=== PATIENT | female | born 1960 | race Caucasian/White ===

== ENCOUNTER 2018-07-10 13:47 | Inpatient (IN) | payer BC ==
[2018-07-10 14:14] LABS: #Eosinphils 0.1 thou/uL (0.0-0.7); #Lymphocytes 1.1 thou/uL (1.20-3.40); #Monocytes 0.7 thou/uL (0.11-0.59); #Neutrophils 12.4 thou/uL (1.40-6.50); %Basophils 0.1 % (0.0-1.0); %Eosinophils 0.6 % (0.0-10.0); %Lymphocytes 7.8 % (21.0-51.0); %Monocytes 5.1 % (0.0-10.0); %Neutrophils 86.4 % (42.0-75.0); Hemoglobin 15.2 g/dL (12.0-16.0); Mean Corpuscular HGB CONC 32.8 g/dL (32.0-36.0); Mean Corpuscular Hemoglobin 33.8 pg (27.0-31.0); Mean Platelet Volume 7.1 fL (7.4-10.4); Platelet Count 226 thou/uL (130-400); RBC Distribution Width 12.7 % (11.5-14.5); White Blood Cell (WBC) Count 14.3 thou/uL (4.8-10.8)
--- NOTE | 2018-07-10 14:24 | RAD ---
CHEST 1 VIEW: Date: 07/10/18 HISTORY: Dyspnea. COMPARISON: Radiograph dated 08/25/16. FINDINGS: Abnormal nodular densities are present in the right lung base. This is likely the costochondral calci fication as can be seen on the prior examination. Calcified granuloma left lung base. No focal air sp perla consolidation. IMPRESSION: Chronic changes. No acute intrathoracic abnormality. POS: [facility]
[2018-07-10 14:50] LABS: ALT (SGPT) 38 U/L (8-55); AST (SGOT) 44 U/L (5-34); Albumin 4.1 g/dL (3.5-5.0); Alkaline Phosphatase 94 U/L (40-150); Anion Gap 22 mmol/L (10-20); BUN (Urea Nitrogen) 10 mg/dL (9.8-20.1); Bilirubin, Total 0.8 mg/dL (0.2-1.2); Calc. Creatinine Clearance 0 mL/min (70-130); Calcium 9.6 mg/dL (7.8-10.44); Carbon Dioxide 18 mmol/L (22-29); Chloride 90 mmol/L (98-107); Estimated GFR-MDRD 52; Globulin 3.1 g/dL (2.4-3.5); Glucose 129 mg/dL (70-105); Potassium 4.5 mmol/L (3.5-5.1); Protein, Total 7.2 g/dL (6.0-8.3); Sodium 125 mmol/L (136-145)
[2018-07-10 15:34] LABS: Acetaminophen Less than 6.0 mcg/mL (10.0-30.0); Alcohol Less than 10 mg/dL (Less than 10); Salicylate Less than 8.0 mg/dL (15.0-30.0)
[2018-07-10] MEDS ORDERED: Multivitamins, Adult 10 ML, Thiamine HCl 100 MG, Folic Acid 1 MG in Dextrose 5 %-0.45 %... IV SCH (16:30)
[2018-07-10] MEDS ORDERED: Lorazepam 2 MG/ML VIAL ONE (16:37)
[2018-07-10] MEDS ORDERED: chlordiazePOXIDE HCl 25 MG CAP ONE (16:37)
--- NOTE | 2018-07-10 16:59 | CT ---
CT BRAIN WITHOUT CONTRAST: 07/10/18 HISTORY: Altered mental status. FINDINGS: Comparison is made with exam of 01/21/13. No evidence of infarct, hemorrhage, midline shift, or abnormal extra-axial fluid collections are seen . The ventricular size is normal and the basilar cisterns patent. The bony calvarium is intact. The v isualized paranasal sinuses and mastoid air cells are well aerated. IMPRESSION: No CT evidence of acute intracranial process. POS: [facility]
--- NOTE | 2018-07-10 17:11 | CT ---
CT CERVICAL SPINE NONCONTRAST: 07/10/18 HISTORY: Fall. Neck injury. FINDINGS: Vertebral body heights and alignment are maintained. Multilevel disc space narrowing and osteophytosi s with central canal and foraminal stenoses. No acute fracture or dislocation. Calcification at the c arotid bifurcations. IMPRESSION: Cervical spondylosis. No acute osseous abnormalities are demonstrated. Atherosclerosis. POS: [facility]
--- NOTE | 2018-07-10 19:45 | HP ---
DATE OF ADMISSION: 07/10/2018 CHIEF COMPLAINT: Altered mental status. HISTORY OF PRESENT ILLNESS: Patient is a 58-year-old female with long history of drinking 20 beers a day and when she is not drinking, she will use benzodiazepines and there is questionable use of them together and her history, she is brought in for not being able to recognize her brother and kario n and possibly start the day before when her son relates that he talked to her on the phone, she soun ded confused at that time as well. There is suspicion that she is getting ready to take a serum urin e drug screen for alcohol level since she is on probation and thought is that she has been excessivel y hydrating to flush this out of her system. Her alcohol level at this point is less than 10, but un fortunately her sodium level was down to 125 and she may be altered due to the low sodium and/or liss y signs of DTs and alcohol withdrawal. She does not use other illicit drugs. She does smoke. The ally leger is very open to going to a rehab facility after this hospitalization. PAST MEDICAL HISTORY: Significant for severe generalized anxiety disorder, hypertension, dyslipidemi a, and the aforementioned alcohol abuse. She also has COPD and has recently been started on Symbicor t. PAST SURGICAL HISTORY: Significant for hysterectomy. PSYCHIATRIC HISTORY: The patient has no hospitalizations, but is known to be replete with anxiety. SOCIAL HISTORY: Smokes occasionally and has been hiding her alcoholism for quite some time. She sean es at home and takes care of her mother. MEDICATIONS ON ADMISSION: Lisinopril 20 mg daily, metoprolol 50 mg daily, atorvastatin 40 mg at bedt antonia, potassium supplement daily, vitamin 81 mg aspirin daily and alprazolam 1 mg t.i.d. p.r.n. ALLERGIES: She is allergic to HYDROCODONE. REVIEW OF SYSTEMS: Difficult to ascertain at this time because of her altered mental status. PHYSICAL EXAMINATION: VITAL SIGNS: On admission, blood pressure 130/84, pulse 97, respirations 20, temperature 98.0, pain scale rated at 8/10 on her chronic back pain and O2 sat at 98% on 2 liters. GENERAL: This is an older than stated that appears older than stated age female who is michael rt, responsive, but confused. She does not recognize the examiner who she knows well. HEENT: Normocephalic and atraumatic. Pupils equal, round, and reactive to light. Extraocular muscl es are intact. TMs, nares, pharynx are clear. NECK: Supple, trachea midline, no mass or adenopathy. CHEST: With diminished breath sounds throughout. HEART: Regular rate and rhythm. BREASTS: Deferred. ABDOMEN: Soft, nontender, without organomegaly. GENITOURINARY: Deferred. EXTREMITIES: Without clubbing, cyanosis, or edema. Mild muscular wasting is noted in all extremitie s. Normal range of motion present. SKIN: Without rashes or lesions other than sporadic ecchymotic bruising. NEUROLOGIC: Cranial nerves are intact. Sensory exam is grossly intact. Deep tendon reflexes 2+. B abinskis down. Mental status is altered. She is oriented x1. Appears euthymic and confused. LABORATORY AND X-RAY FINDINGS: The lab work thus far shows WBCs 14.3, hemoglobin 15.2, hematocrit 46 .3, platelets at 226, unremarkable diff. Alcohol level less than 10. Chemistry: Sodium 125, potass ium 4.5, chloride 90, CO2 18, BUN 10, creatinine 1.08, GFR 52, glucose 129, serum osmolality low at 2 63, calcium 9.6. Liver functions normal except for slightly elevated AST at 44. TSH 1.7, lipase 17. Ammonia 27. CT of the head unremarkable. ASSESSMENT: 1. Altered mental status probably due to #2. 2. Anemia. 3. Alcoholism with possible early delirium tremors. 4. Hypertension. 5. Chronic obstructive pulmonary disease. The plan is we are going to admit the patient and prevent DTs. We are going to fluid restrict her, give her thiamine, folate, multiple vitamins, serially ree valuate her and when she seems to be past the detox phase, I will arrange for long-term rehabilitatio n.
[2018-07-10] MEDS ORDERED: Lorazepam 2 MG/ML VIAL SLOW IVP PRN (21:14)
[2018-07-10] MEDS ORDERED: Dextrose 5 % And 0.9 % NaCl 1,000 ML IV SCH (21:15)
[2018-07-10] MEDS ORDERED: Acetaminophen 325 MG TAB PO PRN (21:24)
[2018-07-10] MEDS ORDERED: Ondansetron HCl/PF 4 MG/2 ML Vial SLOW IVP PRN (21:25)
[2018-07-10] MEDS ORDERED: Budesonide 0.5 MG/2 ML NEB NEB SCH (21:30)
[2018-07-10] MEDS ORDERED: Sodium Chloride 0.9% 500 ML IV SCH (21:30)
[2018-07-10] MEDS: Metoprolol Tartrate 25 MG TAB PO SCH (21:47)
[2018-07-10] MEDS: chlordiazePOXIDE HCl 25 MG CAP PO SCH (21:47)
[2018-07-10 22:25] VITALS: BMI 18.7
[2018-07-11] MEDS: Lorazepam 2 MG/ML VIAL SLOW IVP PRN ×4 (00:21→20:00)
[2018-07-11 04:42] LABS: #Eosinphils 0.1 thou/uL (0.0-0.7); #Lymphocytes 1.3 thou/uL (1.20-3.40); #Monocytes 0.6 thou/uL (0.11-0.59); #Neutrophils 7.2 thou/uL (1.40-6.50); %Basophils 0.5 % (0.0-1.0); %Eosinophils 1.1 % (0.0-10.0); %Lymphocytes 14.4 % (21.0-51.0); %Monocytes 6.4 % (0.0-10.0); %Neutrophils 77.7 % (42.0-75.0); Hemoglobin 13.3 g/dL (12.0-16.0); Mean Corpuscular HGB CONC 35.6 g/dL (32.0-36.0); Mean Corpuscular Hemoglobin 35.6 pg (27.0-31.0); Mean Platelet Volume 6.8 fL (7.4-10.4); Platelet Count 202 thou/uL (130-400); RBC Distribution Width 12.4 % (11.5-14.5); Red Blood Cell (RBC) Count 3.75 mill/uL (4.20-5.40); White Blood Cell (WBC) Count 9.2 thou/uL (4.8-10.8)
[2018-07-11 05:09] LABS: Anion Gap 12 mmol/L (10-20); BUN (Urea Nitrogen) 8 mg/dL (9.8-20.1); Calc. Creatinine Clearance 66 mL/min (70-130); Carbon Dioxide 25 mmol/L (22-29); Cardiac Risk 2.4 (Less than 4.5); Chloride 89 mmol/L (98-107); Cholesterol 181 mg/dl (< 200 Desired); Estimated GFR-MDRD 78; Glucose 92 mg/dL (70-105); HDL Cholesterol 75 mg/dL (>60 Neg Risk); LDL Cholesterol, Calculated 97 mg/dL; Magnesium 1.9 mg/dL (1.6-2.6); Potassium 3.2 mmol/L (3.5-5.1); Sodium 123 mmol/L (136-145); Triglycerides 45 mg/dL (Less than 150)
[2018-07-11] MEDS: Budesonide 0.5 MG/2 ML NEB INH SCH ×2 (06:35→19:40)
[2018-07-11] MEDS: chlordiazePOXIDE HCl 25 MG CAP PO SCH ×4 (08:03→19:59)
[2018-07-11] MEDS: Folic Acid 1 MG TAB PO SCH (08:04)
[2018-07-11] MEDS: Multivit, Therapeutic 1 TAB PO SCH (08:04)
[2018-07-11] MEDS: Thiamine HCl 200 MG/2 ML VIAL IM SCH (08:05)
[2018-07-11] MEDS: Metoprolol Tartrate 25 MG TAB PO SCH ×2 (08:05→19:59)
[2018-07-11 10:03] LABS: Bilirubin Negative (Negative); Blood, Urine Negative (Negative); Clarity CLEAR (Clear); Glucose, Urine (Dipstick) Negative (Negative); Leukocyte Moderate (Negative); Nitrite Negative (Negative); Protein, Urine (Dipstick) Negative (Neg-Trace); Specific Gravity, Urine 1.005 (1.002-1.036); Urobilinogen 0.2 mg/dL (0.2-1.0)
[2018-07-11 10:05] LABS: Bacteria/HPF None Seen HPF (None Seen); Hyaline Casts/LPF 0-3 HYALINE CAST LPF (0-3 Hyaline); RBC/HPF None Seen HPF (0-3); Squamous Epithelial 0-3 HPF (0-3)
[2018-07-11 10:15] LABS: Amphetamine Not Detected (NotDetected); Barbiturates Screen Not Detected (NotDetected); Benzodiazepine Screen Detected (NotDetected); Cocaine Metabolite Screen Not Detected (NotDetected); Medtox Control Line Valid? VALID (VALID); Medtox Reader # READER 4; Methadone Not Detected (NotDetected); Methamphetamine Not Detected (NotDetected); Opiate Screen Not Detected (NotDetected); Oxycodone Screen Not Detected (NotDetected); Phencyclidine (PCP) Not Detected (NotDetected); THC/Cannabinoid Screen Not Detected (NotDetected); Tricyclic Screen Not Detected (NotDetected)
[2018-07-11] MEDS: Furosemide 20 MG/2 ML VIAL SLOW IVP SCH ×2 (13:04→17:14)
[2018-07-11] MEDS: NS 0.9% w/ 20 MEQ KCL 1,000 ML IV SCH (13:04)
[2018-07-11] MEDS: cefTRIAXone\\ROCEPHIN 1 GM in Sodium Chloride 0.9% 100 ML SLOW IVP SCH (14:10)
[2018-07-12] MEDS: Lorazepam 2 MG/ML VIAL SLOW IVP PRN (01:06)
[2018-07-12 05:22] LABS: Anion Gap 14 mmol/L (10-20); BUN (Urea Nitrogen) 8 mg/dL (9.8-20.1); Calc. Creatinine Clearance 68 mL/min (70-130); Calcium 8.4 mg/dL (7.8-10.44); Carbon Dioxide 24 mmol/L (22-29); Chloride 98 mmol/L (98-107); Estimated GFR-MDRD 81; Glucose 95 mg/dL (70-105); Potassium 3.5 mmol/L (3.5-5.1); Sodium 132 mmol/L (136-145)
[2018-07-12] MEDS: NS 0.9% w/ 20 MEQ KCL 1,000 ML IV SCH ×2 (06:00→14:58)
[2018-07-12] MEDS: Thiamine HCl 200 MG/2 ML VIAL IM SCH (07:41)
[2018-07-12] MEDS: chlordiazePOXIDE HCl 25 MG CAP PO SCH ×3 (07:41→16:32)
[2018-07-12] MEDS: Folic Acid 1 MG TAB PO SCH (07:42)
[2018-07-12] MEDS: Multivit, Therapeutic 1 TAB PO SCH (07:42)
[2018-07-12] MEDS: Metoprolol Tartrate 25 MG TAB PO SCH (07:42)
[2018-07-12 08:55] VITALS: BP 114/73
[2018-07-12] MEDS: Budesonide 0.5 MG/2 ML NEB INH SCH ×2 (09:01→18:41)
[2018-07-12 09:56] VITALS: TEMP 98.2
[2018-07-12] MEDS: cefTRIAXone\\ROCEPHIN 1 GM in Sodium Chloride 0.9% 100 ML SLOW IVP SCH (13:45)
--- NOTE | 2018-07-13 00:33 | DIS ---
DATE OF ADMISSION: 07/10/2018 DATE OF DISCHARGE: 07/12/2018 CHIEF COMPLAINT ON ADMISSION: Altered mental status. History and physical have been dictated. I will resume from there with hospital course. HOSPITAL COURSE: The patient was placed in a medical bed where regular dosing of Librium was perform ed. She was given daily doses of thiamine and folate. During this time, fluid was restricted to kun vate her sodium level over the next 24 hours, she failed to improve her sodium level actually went do wn to 123, potassium also began to diminish to 3.2. Remainder of her lab was normal. Her vital sign s are stable except for systolic of 91/57. UA did return positive for leukocytes esterase and with 4 -6 wbc's. 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 La six 20 mg IV was given twice, her IV fluids were changed to add potassium and the fluid rate of clarisa l saline was increased. Over the next 24 hours, she significantly improved, becoming fully oriented. There was no anxiety or tremors. Her medication had worked quite well. Sodium elevated to 132, po tassium was normalized to 3.5. The remainder of her electrolytes were normal. Her neurological stat us also improved to baseline where she was called, fully oriented and ready for discharge. [facility], [facility]hab was arranged with more than rehab and they will send someone to come and speak to her prior to discharge and arrange for outpatient rehabilitation. She will be maintained on Bact rim-DS twice a day, naltrexone 50 mg daily, and gabapentin 400 mg b.i.d. to replace Librium. DISCHARGE DIAGNOSES: 1. Alcohol withdrawal. 2. Urinary tract infection. 3. 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 4. Altered mental status, resolved. 5. Hypertension, resolved. DISCHARGE MEDICATIONS: As previously mentioned will be Bactrim-DS b.i.d. #14, naltrexone 50 daily #3 0, folate 1 mg daily #30 and gabapentin 400 mg b.i.d. #20. PLAN: She is to follow up with Dr. Butts in 1 week, the time required to examine the chart, then exa mined the patient. Prepare for discharge including arranging outpatient rehab and dictation as well as reconciling all her medication came to 40 minutes and she is discharged in stable condition and wi ll be released from the hospital once [facility] has had a chance to arrange outpatient care.
== END 2018-07-12 18:50 | disposition home or self-care (01) | DRG 897 ==
LOC: ERS 13:47 → T4-B 21:15
PROVIDERS: ADMIT Specialist; ATTEND Specialist
DX: F10.231 Alcohol dependence with withdrawal delirium (principal); N39.0 Urinary tract infection, site not specified; E22.2 Syndrome of inappropriate secretion of antidiuretic hormone; D64.9 Anemia, unspecified; R41.82 Altered mental status, unspecified; F41.9 Anxiety disorder, unspecified; J44.9 Chronic obstructive pulmonary disease, unspecified; I10 Essential (primary) hypertension
CPT/HCPCS: 36415; 70450; 71045; 72125; 80048; 80053; 80061; 80306; 80307; 81001; 82140; 83690; 83735; 83930; 83935; 84443; 85025; 93005; 94640; 94760; 96365; A4216; J0696; J1940; J2060; J3411; J3475; J7042; J7050; J7626

== ENCOUNTER 2018-11-14 06:14 | Emergency (ER) | payer BC ==
[2018-11-14 07:14] LABS: #Eosinphils 0.1 thou/uL (0.0-0.7); #Lymphocytes 1.3 thou/uL (1.20-3.40); #Monocytes 0.6 thou/uL (0.11-0.59); #Neutrophils 13.6 thou/uL (1.40-6.50); %Basophils 0.2 % (0.0-1.0); %Eosinophils 0.4 % (0.0-10.0); %Lymphocytes 8.2 % (21.0-51.0); %Neutrophils 87.2 % (42.0-75.0); Hemoglobin 13.9 g/dL (12.0-16.0); Mean Corpuscular HGB CONC 32.1 g/dL (32.0-36.0); Mean Corpuscular Hemoglobin 31.6 pg (27.0-31.0); Mean Corpuscular Volume 98.4 fL (78.0-98.0); Mean Platelet Volume 7.1 fL (7.4-10.4); Platelet Count 306 thou/uL (130-400); RBC Distribution Width 11.9 % (11.5-14.5); Red Blood Cell (RBC) Count 4.42 mill/uL (4.20-5.40); White Blood Cell (WBC) Count 15.6 thou/uL (4.8-10.8)
[2018-11-14 07:37] LABS: ALT (SGPT) 19 U/L (8-55); AST (SGOT) 22 U/L (5-34); Albumin 4.4 g/dL (3.5-5.0); Alkaline Phosphatase 88 U/L (40-150); Anion Gap 14 mmol/L (10-20); BUN (Urea Nitrogen) 12 mg/dL (9.8-20.1); Bilirubin, Total 0.4 mg/dL (0.2-1.2); Calc. Creatinine Clearance 0 mL/min (70-130); Calcium 9.6 mg/dL (7.8-10.44); Carbon Dioxide 26 mmol/L (22-29); Chloride 96 mmol/L (98-107); Estimated GFR-MDRD 68; Globulin 3.2 g/dL (2.4-3.5); Glucose 96 mg/dL (70-105); Potassium 3.8 mmol/L (3.5-5.1); Protein, Total 7.6 g/dL (6.0-8.3); Sodium 132 mmol/L (136-145)
--- NOTE | 2018-11-14 09:35 | RAD ---
PORTABLE CHEST ONE VIEW: 11/14/2018 6:49 a.m. HISTORY: Cough. COMPARISON: 07/10/2018 FINDINGS: The heart size is normal. The lungs are well expanded without focal areas of consolidation, pneumoth orax, or pleural effusions. Calcified granuloma in the left lung base is again seen. IMPRESSION: No acute process. POS: [facility]
== END 2018-11-14 09:03 | disposition home or self-care (01) ==
LOC: ERS 06:14
DX: J44.1 Chronic obstructive pulmonary disease with (acute) exacerbation (principal); J20.9 Acute bronchitis, unspecified; J44.0 Chronic obstructive pulmonary disease with (acute) lower respiratory infection; Z71.6 Tobacco abuse counseling; E78.5 Hyperlipidemia, unspecified; I10 Essential (primary) hypertension; F41.9 Anxiety disorder, unspecified; F32.9 Major depressive disorder, single episode, unspecified; F17.210 Nicotine dependence, cigarettes, uncomplicated; Z79.899 Other long term (current) drug therapy
CPT/HCPCS: 36415; 71045; 80053; 83605; 84484; 85025; 87804; 93005; 94640; 99406; J7620

== ENCOUNTER 2021-06-12 13:56 | Inpatient (IN) | payer BC, SELFPAY ==
[~2021-06-12 13:56] MED LIST: Iopamidol-370 76% 500 ML 1 ML ONE
[2021-06-12 14:45] LABS: Actual Bicarbonate (HCO3a) 23.2 mEq/L (22-28); Base Excess (BEa) -2.3 mEq/L (-2.0 to +3.0); CO2 Tension 42.3 mmHg (35.0-45.0); O2 Tension (PaO2), arterial 85.9 mmHg (> 80.0); pH, Arterial 7.36 (7.35-7.45)
[2021-06-12 14:46] LABS: Analyzer IN Cardio ER; Calcium, Ionized (arterial) 1.12 mmol/L (1.12-1.30); Hemoglobin (Hb) 15.6 g/dL (12.0-16.0); Potassium - ABG Lab 4.05 mmol/L (3.70-5.30)
[2021-06-12] MEDS ORDERED: Magnesium 2 GM/50 ML BAG (IN WATER) ONE (14:53)
[2021-06-12] MEDS ORDERED: Ipratropium Bromide 2.5 ml Neb ONE (14:53)
[2021-06-12] MEDS ORDERED: Albuterol Sulfate 2.5 mg/3 ml Neb ONE (14:53)
[2021-06-12] MEDS ORDERED: Lorazepam 2 MG/ML VIAL ONE (14:53)
[2021-06-12 15:01] LABS: Puncture Site LRA
[2021-06-12 15:02] LABS: ALV-art Gradient 89.385 mmHg (0-20)
[2021-06-12 15:23] LABS: #Lymphocytes 0.5 thou/uL (1.20-3.40); #Monocytes 0.2 thou/uL (0.11-0.59); #Neutrophils 12.2 thou/uL (1.40-6.50); %Eosinophils 0.1 % (0.0-10.0); %Lymphocytes 4.1 % (21.0-51.0); %Monocytes 1.6 % (0.0-10.0); %Neutrophils 94.2 % (42.0-75.0); Hemoglobin 15.3 g/dL (12.0-16.0); Mean Corpuscular HGB CONC 33.4 g/dL (32.0-36.0); Mean Corpuscular Hemoglobin 33.8 pg (27.0-31.0); Mean Platelet Volume 7.2 fL (7.4-10.4); Platelet Count 331 thou/uL (130-400); RBC Distribution Width 12.3 % (11.5-14.5); Red Blood Cell (RBC) Count 4.51 mill/uL (4.20-5.40); White Blood Cell (WBC) Count 12.9 thou/uL (4.8-10.8)
[2021-06-12 15:43] LABS: ALT (SGPT) 19 U/L (8-55); AST (SGOT) 29 U/L (5-34); Albumin 4.5 g/dL (3.5-5.0); Alkaline Phosphatase 113 U/L (40-110); Anion Gap 14 mmol/L (10-20); BUN (Urea Nitrogen) 10 mg/dL (9.8-20.1); Bilirubin, Total 0.2 mg/dL (0.2-1.2); Calc. Creatinine Clearance 0 mL/min (70-130); Calcium 9.5 mg/dL (7.8-10.44); Carbon Dioxide 28 mmol/L (22-29); Chloride 89 mmol/L (98-107); Globulin 3.5 g/dL (2.4-3.5); Glucose 127 mg/dL (70-105); Sodium 127 mmol/L (136-145)
[2021-06-12 15:53] LABS: SARS-CoV-2 NAA Rapid Test Not Detected (NotDetected)
[2021-06-12] MEDS ORDERED: predniSONE 20 MG TAB PO SCH (21:00)
[2021-06-12 21:03] LABS: Troponin I Less than 0.010 ng/mL (< 0.028)
[2021-06-12] MEDS ORDERED: Enoxaparin Sodium 40 MG/0.4 ML SYRINGE SC SCH (21:15)
[2021-06-12] MEDS ORDERED: Azithromycin 500 MG in Sodium Chloride 0.9% 250 ML 250 ML IVPB SCH (22:00)
[2021-06-12] MEDS: Nicotine 21 MG PATCH TD SCH (23:53)
[2021-06-13] MEDS ORDERED: Metoprolol Tartrate 50 MG TAB PO SCH ×3 (00:29→21:00)
[2021-06-13] MEDS ORDERED: Lisinopril 20 MG TAB PO SCH ×2 (00:29→09:00)
[2021-06-13] MEDS ORDERED: Gabapentin 100 MG CAP PO SCH ×2 (00:29→09:00)
[2021-06-13 00:42] VITALS: BMI 18.8
[2021-06-13] MEDS: Thiamine HCl 200 MG/2 ML VIAL SLOW IVP SCH (00:58)
[2021-06-13] MEDS ORDERED: cefTRIAXone\\ROCEPHIN 1 GM in Sodium Chloride 0.9% 100 ML IVPB SCH (02:00)
[2021-06-13] MEDS ORDERED: Cefepime 1 GM VIAL ONE (02:39)
[2021-06-13] MEDS ORDERED: cefTRIAXone\\ROCEPHIN 1 GM VIAL ONE (02:40)
[2021-06-13 06:15] LABS: INR-International Normal Ratio 0.9; PTT 24.5 sec (22.9-36.1); Prothrombin Time 11.6 sec (12.0-14.7)
[2021-06-13 06:18] LABS: Troponin I Less than 0.010 ng/mL (< 0.028)
[2021-06-13 06:21] LABS: #Lymphocytes 0.6 thou/uL (1.20-3.40); #Monocytes 0.5 thou/uL (0.11-0.59); #Neutrophils 9.9 thou/uL (1.40-6.50); %Basophils 0.1 % (0.0-1.0); %Eosinophils 0.1 % (0.0-10.0); %Lymphocytes 5.8 % (21.0-51.0); %Monocytes 4.3 % (0.0-10.0); %Neutrophils 89.7 % (42.0-75.0); Anion Gap 14 mmol/L (10-20); BUN (Urea Nitrogen) 14 mg/dL (9.8-20.1); Calc. Creatinine Clearance 62 mL/min (70-130); Carbon Dioxide 26 mmol/L (22-29); Chloride 90 mmol/L (98-107); Glucose 105 mg/dL (70-105); Mean Corpuscular HGB CONC 33.6 g/dL (32.0-36.0); Mean Corpuscular Hemoglobin 34.1 pg (27.0-31.0); Mean Platelet Volume 7.7 fL (7.4-10.4); Platelet Count 306 thou/uL (130-400); Potassium 5.2 mmol/L (3.5-5.1); RBC Distribution Width 12.2 % (11.5-14.5); Red Blood Cell (RBC) Count 4.12 mill/uL (4.20-5.40); Sodium 125 mmol/L (136-145); White Blood Cell (WBC) Count 11.1 thou/uL (4.8-10.8)
[2021-06-13] MEDS: Mometasone 200 MCG/Formoterol 5 MCG 120 PUFF INHALER INH SCH ×2 (07:17→19:35)
[2021-06-13 07:49] LABS: Lactic Acid 0.9 mmol/L (0.5-2.2)
[2021-06-13] MEDS: Folic Acid 1 MG TAB PO SCH (08:36)
[2021-06-13] MEDS: predniSONE 20 MG TAB PO SCH ×2 (08:37→20:27)
[2021-06-13] MEDS: Enoxaparin Sodium 40 MG/0.4 ML SYRINGE SC SCH (08:37)
[2021-06-13] MEDS ORDERED: Thiamine 100 MG TAB PO SCH (09:00)
[2021-06-13] MEDS: guaiFENesin ER 600 MG TAB PO SCH (20:27)
[2021-06-13] MEDS: Gabapentin 100 MG CAP PO SCH (20:29)
[2021-06-13] MEDS ORDERED: Atorvastatin Calcium 20 MG TAB PO SCH (21:00)
[2021-06-13] MEDS: Lisinopril 20 MG TAB PO SCH (21:05)
[2021-06-13] MEDS: Nicotine 21 MG PATCH TD SCH (21:07)
[2021-06-14] MEDS: Thiamine HCl 200 MG/2 ML VIAL SLOW IVP SCH (01:06)
[2021-06-14] MEDS ORDERED: cefTRIAXone\\ROCEPHIN 1 GM in Sodium Chloride 0.9% 100 ML IVPB SCH (03:00)
[2021-06-14 06:46] LABS: #Lymphocytes 1.3 thou/uL (1.20-3.40); #Monocytes 0.8 thou/uL (0.11-0.59); %Basophils 0.1 % (0.0-1.0); %Eosinophils 0.2 % (0.0-10.0); %Lymphocytes 11.5 % (21.0-51.0); %Monocytes 6.9 % (0.0-10.0); %Neutrophils 81.3 % (42.0-75.0); Hemoglobin 14.1 g/dL (12.0-16.0); Mean Corpuscular HGB CONC 32.2 g/dL (32.0-36.0); Mean Corpuscular Hemoglobin 32.7 pg (27.0-31.0); Mean Platelet Volume 7.2 fL (7.4-10.4); Platelet Count 357 thou/uL (130-400); RBC Distribution Width 12.2 % (11.5-14.5); Red Blood Cell (RBC) Count 4.32 mill/uL (4.20-5.40); White Blood Cell (WBC) Count 11.1 thou/uL (4.8-10.8)
[2021-06-14] MEDS: Mometasone 200 MCG/Formoterol 5 MCG 120 PUFF INHALER INH SCH (06:55)
[2021-06-14 07:08] LABS: Anion Gap 12 mmol/L (10-20); BUN (Urea Nitrogen) 13 mg/dL (9.8-20.1); Calc. Creatinine Clearance 66 mL/min (70-130); Carbon Dioxide 31 mmol/L (22-29); Chloride 90 mmol/L (98-107); Glucose 102 mg/dL (70-105); Potassium 4.3 mmol/L (3.5-5.1); Sodium 129 mmol/L (136-145)
[2021-06-14] MEDS ORDERED: predniSONE 20 MG TAB PO SCH (08:00)
[2021-06-14] MEDS ORDERED: Azithromycin 250 MG TAB PO SCH (09:00)
[2021-06-14] MEDS: guaiFENesin ER 600 MG TAB PO SCH (09:19)
[2021-06-14] MEDS: Enoxaparin Sodium 40 MG/0.4 ML SYRINGE SC SCH (09:19)
[2021-06-14] MEDS: Gabapentin 100 MG CAP PO SCH (09:19)
[2021-06-14] MEDS: Folic Acid 1 MG TAB PO SCH (09:19)
[2021-06-14] MEDS: Lisinopril 20 MG TAB PO SCH (09:19)
[2021-06-14 16:23] VITALS: BP 124/85; TEMP 98.4
== END 2021-06-14 16:56 | disposition home or self-care (01) | DRG 189 ==
LOC: ERS 13:56 → 2NO 19:40 → T4-B 06-13 22:52
PROVIDERS: ADMIT Family Medicine; ATTEND Family Medicine
PROC: 5A09357 Assistance with Respiratory Ventilation, Less than 24 Consecutive Hours, Continuous Positive Airway Pressure (ICD-10-PCS; principal; 2021-06-12)
PROC: HZ2ZZZZ Detoxification Services for Substance Abuse Treatment (ICD-10-PCS; 2021-06-13)
DX: J96.01 Acute respiratory failure with hypoxia (principal); J44.1 Chronic obstructive pulmonary disease with (acute) exacerbation; E87.1 Hypo-osmolality and hyponatremia; E87.4 Mixed disorder of acid-base balance; M54.6 Pain in thoracic spine; I10 Essential (primary) hypertension; E78.5 Hyperlipidemia, unspecified; F10.10 Alcohol abuse, uncomplicated; Z20.822 Contact with and (suspected) exposure to COVID-19; F17.210 Nicotine dependence, cigarettes, uncomplicated; D72.829 Elevated white blood cell count, unspecified; Z90.710 Acquired absence of both cervix and uterus; Z88.8 Allergy status to other drugs, medicaments and biological substances; Z79.82 Long term (current) use of aspirin; Z79.51 Long term (current) use of inhaled steroids; Z79.899 Other long term (current) drug therapy; Z71.6 Tobacco abuse counseling
CPT/HCPCS: 0240U; 36415; 36600; 71045; 71275; 80048; 80053; 82805; 83605; 83690; 83880; 83930; 83935; 84145; 84300; 84484; 85025; 85379; 85610; 85730; 93005; 94640; 94644; 94660; 94760; 96365; 96375; 99292; J0456; J0696; J1650; J2060; J3411; J3475; J3490; J7050; J7512; J7611; J7620; Q9967

== ENCOUNTER 2021-12-02 02:16 | Emergency (ER) | payer BC, OTHER, SELFPAY ==
[2021-12-02] MEDS ORDERED: Sucralfate 1 GM/10 ML UDCUP ONE (02:43)
[2021-12-02 02:47] LABS: #Basophils 0.1 thou/uL (0.0-0.2); #Eosinphils 0.3 thou/uL (0.0-0.7); #Lymphocytes 2.2 thou/uL (1.20-3.40); #Monocytes 0.7 thou/uL (0.11-0.59); #Neutrophils 5.5 thou/uL (1.40-6.50); %Basophils 1.1 % (0.0-1.0); %Eosinophils 3.1 % (0.0-10.0); %Lymphocytes 25.2 % (21.0-51.0); %Monocytes 7.6 % (0.0-10.0); %Neutrophils 63.1 % (42.0-75.0); Hemoglobin 15.9 g/dL (12.0-16.0); Mean Corpuscular HGB CONC 36.1 g/dL (32.0-36.0); Mean Corpuscular Hemoglobin 36.3 pg (27.0-31.0); Platelet Count 213 thou/uL (130-400); RBC Distribution Width 11.7 % (11.5-14.5); Red Blood Cell (RBC) Count 4.36 mill/uL (4.20-5.40); White Blood Cell (WBC) Count 8.7 thou/uL (4.8-10.8)
[2021-12-02 03:11] LABS: ALT (SGPT) 22 U/L (8-55); AST (SGOT) 26 U/L (5-34); Albumin 4.1 g/dL (3.5-5.0); Alkaline Phosphatase 104 U/L (40-110); Anion Gap 15 mmol/L (10-20); BUN (Urea Nitrogen) 5 mg/dL (9.8-20.1); Bilirubin, Total 0.5 mg/dL (0.2-1.2); Calc. Creatinine Clearance 0 mL/min (70-130); Calcium 9.7 mg/dL (7.8-10.44); Carbon Dioxide 26 mmol/L (22-29); Chloride 85 mmol/L (98-107); Globulin 3.2 g/dL (2.4-3.5); Glucose 90 mg/dL (70-105); Lipase 17 U/L (8-78); Potassium 3.6 mmol/L (3.5-5.1); Protein, Total 7.3 g/dL (6.0-8.3); Sodium 122 mmol/L (136-145)
== END 2021-12-02 04:05 | disposition home or self-care (01) ==
LOC: ERS 02:16
DX: K29.70 Gastritis, unspecified, without bleeding (principal); E78.5 Hyperlipidemia, unspecified; E78.00 Pure hypercholesterolemia, unspecified; I10 Essential (primary) hypertension; J44.9 Chronic obstructive pulmonary disease, unspecified; F17.210 Nicotine dependence, cigarettes, uncomplicated
CPT/HCPCS: 36415; 71045; 80053; 83690; 84484; 85025; 93005

== ENCOUNTER 2021-12-20 07:23 | Observation (INO) | payer SELFPAY ==
[2021-12-20] MEDS ORDERED: Albuterol 200 PUFF (6.7GM INHALER) ONE (08:17)
[2021-12-20 08:19] LABS: #Eosinphils 0.2 thou/uL (0.0-0.7); #Lymphocytes 1.7 thou/uL (1.20-3.40); #Monocytes 0.4 thou/uL (0.11-0.59); #Neutrophils 3.3 thou/uL (1.40-6.50); %Basophils 0.7 % (0.0-1.0); %Eosinophils 3.3 % (0.0-10.0); %Lymphocytes 30.7 % (21.0-51.0); %Monocytes 6.6 % (0.0-10.0); %Neutrophils 58.8 % (42.0-75.0); Hemoglobin 15.1 g/dL (12.0-16.0); Mean Corpuscular HGB CONC 34.2 g/dL (32.0-36.0); Mean Corpuscular Hemoglobin 34.8 pg (27.0-31.0); Mean Platelet Volume 7.1 fL (7.4-10.4); Platelet Count 188 thou/uL (130-400); RBC Distribution Width 12.2 % (11.5-14.5); Red Blood Cell (RBC) Count 4.35 mill/uL (4.20-5.40); White Blood Cell (WBC) Count 5.7 thou/uL (4.8-10.8)
[2021-12-20 08:37] LABS: ALT (SGPT) 29 U/L (8-55); AST (SGOT) 35 U/L (5-34); Albumin 4.2 g/dL (3.5-5.0); Alkaline Phosphatase 118 U/L (40-110); Anion Gap 15 mmol/L (10-20); BUN (Urea Nitrogen) 5 mg/dL (9.8-20.1); Bilirubin, Total 0.5 mg/dL (0.2-1.2); Calc. Creatinine Clearance 0 mL/min (70-130); Calcium 9.6 mg/dL (7.8-10.44); Carbon Dioxide 29 mmol/L (22-29); Chloride 88 mmol/L (98-107); Globulin 3.3 g/dL (2.4-3.5); Glucose 96 mg/dL (70-105); Protein, Total 7.5 g/dL (6.0-8.3); Sodium 128 mmol/L (136-145)
[2021-12-20] MEDS ORDERED: Ondansetron PF 4 MG/2 ML Vial IVP PRN (09:46)
[2021-12-20] MEDS ORDERED: Senokot S 8.6-50 MG TAB PO PRN (09:46)
[2021-12-20] MEDS ORDERED: Guaifenesin DM 100-10/5 ML UDCUP PO PRN (09:46)
[2021-12-20] MEDS ORDERED: Calcium Carbonate 500 MG ChewTAB PO PRN (09:46)
[2021-12-20] MEDS ORDERED: Acetaminophen 325 MG TAB PO PRN (09:46)
[2021-12-20 13:17] LABS: SARS-CoV-2 NAA Rapid Test Not Detected (NotDetected)
[2021-12-20] MEDS: methylPREDNISolone Sod Succ 40 MG VIAL IVP SCH ×2 (14:19→21:55)
[2021-12-20] MEDS ORDERED: methylPREDNISolone Sod Succ 40 MG VIAL ONE (14:20)
[2021-12-20] MEDS: Carvedilol 6.25 MG TAB PO SCH (18:08)
[2021-12-20 18:31] VITALS: BMI 17.2
[2021-12-20] MEDS: Doxycycline 100 MG CAP PO SCH (21:57)
[2021-12-21] MEDS: methylPREDNISolone Sod Succ 40 MG VIAL IVP SCH (06:38)
[2021-12-21 07:30] LABS: #Lymphocytes 1.3 thou/uL (1.20-3.40); #Monocytes 0.3 thou/uL (0.11-0.59); #Neutrophils 5.7 thou/uL (1.40-6.50); %Basophils 0.1 % (0.0-1.0); %Eosinophils 0.1 % (0.0-10.0); %Lymphocytes 17.4 % (21.0-51.0); %Monocytes 4.3 % (0.0-10.0); %Neutrophils 78.1 % (42.0-75.0); Hemoglobin 14.3 g/dL (12.0-16.0); Mean Corpuscular HGB CONC 33.3 g/dL (32.0-36.0); Mean Corpuscular Hemoglobin 34.4 pg (27.0-31.0); Mean Platelet Volume 7.5 fL (7.4-10.4); Platelet Count 195 thou/uL (130-400); Red Blood Cell (RBC) Count 4.17 mill/uL (4.20-5.40); White Blood Cell (WBC) Count 7.3 thou/uL (4.8-10.8)
[2021-12-21 07:45] LABS: Anion Gap 14 mmol/L (10-20); BUN (Urea Nitrogen) 11 mg/dL (9.8-20.1); Calc. Creatinine Clearance 54 mL/min (70-130); Carbon Dioxide 30 mmol/L (22-29); Chloride 89 mmol/L (98-107); Glucose 150 mg/dL (70-105); Sodium 129 mmol/L (136-145)
[2021-12-21 08:20] VITALS: TEMP 96.7
[2021-12-21] MEDS: Carvedilol 6.25 MG TAB PO SCH (08:24)
[2021-12-21 08:25] VITALS: BP 131/80
[2021-12-21] MEDS: Doxycycline 100 MG CAP PO SCH (08:25)
[2021-12-21] MEDS ORDERED: Enoxaparin Sodium 40 MG/0.4 ML SYRINGE SC SCH (09:00)
[2021-12-21] MEDS ORDERED: Atorvastatin Calcium 20 MG TAB PO SCH (09:00)
[2021-12-21] MEDS ORDERED: Gabapentin 100 MG CAP PO SCH (09:00)
[2021-12-21] MEDS ORDERED: Aspirin Chewable 81 MG TAB PO SCH (09:00)
== END 2021-12-21 11:41 | disposition home or self-care (01) ==
LOC: ERS 07:23 → ERHOLD 08:47 → INTOOBSV 08:47 → T4-A 17:47
PROVIDERS: ADMIT Internal Medicine; ATTEND Internal Medicine
DX: J44.1 Chronic obstructive pulmonary disease with (acute) exacerbation (principal); J96.01 Acute respiratory failure with hypoxia; I10 Essential (primary) hypertension; E78.5 Hyperlipidemia, unspecified; Z87.891 Personal history of nicotine dependence; Z79.82 Long term (current) use of aspirin; Z79.899 Other long term (current) drug therapy; Z88.5 Allergy status to narcotic agent; Z88.8 Allergy status to other drugs, medicaments and biological substances; Z20.822 Contact with and (suspected) exposure to COVID-19
CPT/HCPCS: 36415; 71045; 80048; 80053; 84484; 85025; 93005; 94640; 96372; 96374; 96376; G0378; J1650; J2920; J7620; U0002

== ENCOUNTER 2022-03-23 11:43 | Observation (INO) | payer SELFPAY ==
[2022-03-23 12:25] LABS: #Basophils 0.1 thou/uL (0.0-0.2); #Eosinphils 0.6 thou/uL (0.0-0.7); #Lymphocytes 2.4 thou/uL (1.20-3.40); #Monocytes 0.4 thou/uL (0.11-0.59); #Neutrophils 2.7 thou/uL (1.40-6.50); %Basophils 1.1 % (0.0-1.0); %Eosinophils 9.4 % (0.0-10.0); %Lymphocytes 38.8 % (21.0-51.0); %Monocytes 6.7 % (0.0-10.0); Hemoglobin 14.6 g/dL (12.0-16.0); Mean Corpuscular HGB CONC 32.8 g/dL (32.0-36.0); Mean Corpuscular Hemoglobin 33.6 pg (27.0-31.0); Mean Platelet Volume 7.3 fL (7.4-10.4); Platelet Count 253 thou/uL (130-400); RBC Distribution Width 12.5 % (11.5-14.5); Red Blood Cell (RBC) Count 4.35 mill/uL (4.20-5.40); White Blood Cell (WBC) Count 6.1 thou/uL (4.8-10.8)
[2022-03-23 12:45] LABS: ALT (SGPT) 18 U/L (8-55); AST (SGOT) 24 U/L (5-34); Albumin 4.3 g/dL (3.5-5.0); Alkaline Phosphatase 82 U/L (40-110); Anion Gap 13 mmol/L (10-20); BUN (Urea Nitrogen) 6 mg/dL (9.8-20.1); Bilirubin, Total 0.5 mg/dL (0.2-1.2); Calc. Creatinine Clearance 0 mL/min (70-130); Calcium 9.6 mg/dL (7.8-10.44); Carbon Dioxide 30 mmol/L (22-29); Chloride 96 mmol/L (98-107); Globulin 2.9 g/dL (2.4-3.5); Glucose 100 mg/dL (70-105); Potassium 4.7 mmol/L (3.5-5.1); Protein, Total 7.2 g/dL (6.0-8.3); Sodium 134 mmol/L (136-145)
[2022-03-23] MEDS ORDERED: Magnesium 2 GM/50 ML BAG (IN WATER) ONE (13:56)
[2022-03-23] MEDS ORDERED: Albuterol Sulfate 2.5 mg/3 ml Neb ONE (15:13)
[2022-03-23] MEDS ORDERED: Acetaminophen 325 MG TAB PO PRN (18:17)
[2022-03-23] MEDS ORDERED: predniSONE 20 MG TAB PO SCH (18:30)
[2022-03-23 20:14] VITALS: BMI 17.6
[2022-03-23] MEDS ORDERED: Carvedilol 25 MG TAB PO SCH (21:15)
[2022-03-23] MEDS ORDERED: Gabapentin 100 MG CAP PO SCH (21:15)
[2022-03-23] MEDS: guaiFENesin ER 600 MG TAB PO SCH (21:32)
[2022-03-24] LABS: SARS-CoV-2 PCR by NAA Not Detected (NotDetected)
[2022-03-24 07:30] VITALS: TEMP 97.5
[2022-03-24] MEDS ORDERED: predniSONE 20 MG TAB PO SCH (08:00)
[2022-03-24] MEDS: guaiFENesin ER 600 MG TAB PO SCH (08:07)
[2022-03-24 08:08] VITALS: BP 131/58
[2022-03-24] MEDS ORDERED: Aspirin 81 mg Enteric Coated Tablet PO SCH (09:00)
[2022-03-24] MEDS ORDERED: Fluticasone Propionate Nasal Spray 16 gm Bottle NASAL SCH (09:00)
[2022-03-24] MEDS ORDERED: Enoxaparin Sodium 30 MG/0.3 ML SYRINGE SC SCH (09:00)
[2022-03-24] MEDS ORDERED: Carvedilol 25 MG TAB PO SCH (09:00)
[2022-03-24] MEDS ORDERED: Atorvastatin Calcium 10 MG TAB PO SCH (21:00)
[2022-03-24] MEDS ORDERED: Gabapentin 100 MG CAP PO SCH (21:00)
== END 2022-03-24 11:34 | disposition home or self-care (01) ==
LOC: ERS 11:43 → 2SW 17:17
PROVIDERS: ADMIT Family Medicine; ATTEND Family Medicine
DX: J44.1 Chronic obstructive pulmonary disease with (acute) exacerbation (principal); J96.01 Acute respiratory failure with hypoxia; J30.9 Allergic rhinitis, unspecified; E87.1 Hypo-osmolality and hyponatremia; G89.29 Other chronic pain; M54.50 Low back pain, unspecified; I10 Essential (primary) hypertension; E78.5 Hyperlipidemia, unspecified; F10.11 Alcohol abuse, in remission; F13.11 Sedative, hypnotic or anxiolytic abuse, in remission; Z87.891 Personal history of nicotine dependence; Z79.82 Long term (current) use of aspirin; Z79.899 Other long term (current) drug therapy; Z88.5 Allergy status to narcotic agent; Z88.8 Allergy status to other drugs, medicaments and biological substances; Z20.822 Contact with and (suspected) exposure to COVID-19
CPT/HCPCS: 36415; 71045; 80053; 84145; 84484; 85025; 90471; 90732; 93005; 94640; 96365; 96372; G0009; G0378; J1650; J3475; J7512; J7611; J7620; U0003; U0005

== ENCOUNTER 2022-04-19 10:39 | Emergency (ER) | payer OTHER ==
[2022-04-19 11:15] LABS: #Basophils 0.1 thou/uL (0.0-0.2); #Eosinphils 0.3 thou/uL (0.0-0.7); #Lymphocytes 1.9 thou/uL (1.20-3.40); #Monocytes 0.4 thou/uL (0.11-0.59); #Neutrophils 6.1 thou/uL (1.40-6.50); %Basophils 0.6 % (0.0-1.0); %Eosinophils 3.5 % (0.0-10.0); %Lymphocytes 21.8 % (21.0-51.0); %Monocytes 4.9 % (0.0-10.0); %Neutrophils 69.2 % (42.0-75.0); Hemoglobin 14.6 g/dL (12.0-16.0); Mean Corpuscular HGB CONC 33.2 g/dL (32.0-36.0); Mean Corpuscular Hemoglobin 33.9 pg (27.0-31.0); Mean Platelet Volume 6.7 fL (7.4-10.4); Platelet Count 272 thou/uL (130-400); RBC Distribution Width 12.5 % (11.5-14.5); White Blood Cell (WBC) Count 8.8 thou/uL (4.8-10.8)
[2022-04-19 11:35] LABS: ALT (SGPT) 21 U/L (8-55); AST (SGOT) 26 U/L (5-34); Alkaline Phosphatase 78 U/L (40-110); Anion Gap 12 mmol/L (10-20); BUN (Urea Nitrogen) 8 mg/dL (9.8-20.1); Bilirubin, Total 0.4 mg/dL (0.2-1.2); Calc. Creatinine Clearance 0 mL/min (70-130); Carbon Dioxide 31 mmol/L (22-29); Chloride 96 mmol/L (98-107); Globulin 3.3 g/dL (2.4-3.5); Glucose 79 mg/dL (70-105); Potassium 4.6 mmol/L (3.5-5.1); Protein, Total 7.3 g/dL (6.0-8.3); Sodium 134 mmol/L (136-145)
== END 2022-04-19 13:45 | disposition home or self-care (01) ==
LOC: ERS 10:39
DX: J44.1 Chronic obstructive pulmonary disease with (acute) exacerbation (principal); E78.5 Hyperlipidemia, unspecified; E78.00 Pure hypercholesterolemia, unspecified; I10 Essential (primary) hypertension; J44.9 Chronic obstructive pulmonary disease, unspecified; Z79.899 Other long term (current) drug therapy; Z87.891 Personal history of nicotine dependence
CPT/HCPCS: 36415; 71045; 80053; 84484; 85025; 93005; J7620

== ENCOUNTER 2022-05-02 10:34 | Emergency (ER) | payer OTHER, SELFPAY ==
[2022-05-02] MEDS ORDERED: Magnesium 2 GM/50 ML BAG (IN WATER) ONE (10:49)
[2022-05-02 12:14] LABS: #Eosinphils 0.2 thou/uL (0.0-0.7); #Lymphocytes 1.8 thou/uL (1.20-3.40); #Monocytes 0.3 thou/uL (0.11-0.59); #Neutrophils 10.3 thou/uL (1.40-6.50); %Basophils 0.3 % (0.0-1.0); %Eosinophils 1.4 % (0.0-10.0); %Monocytes 2.2 % (0.0-10.0); %Neutrophils 82.1 % (42.0-75.0); Hemoglobin 14.5 g/dL (12.0-16.0); Mean Corpuscular HGB CONC 33.7 g/dL (32.0-36.0); Mean Corpuscular Hemoglobin 34.4 pg (27.0-31.0); Mean Platelet Volume 6.4 fL (7.4-10.4); Platelet Count 278 thou/uL (130-400); RBC Distribution Width 12.7 % (11.5-14.5); Red Blood Cell (RBC) Count 4.21 mill/uL (4.20-5.40); White Blood Cell (WBC) Count 12.5 thou/uL (4.8-10.8)
[2022-05-02 12:41] LABS: ALT (SGPT) 20 U/L (8-55); AST (SGOT) 20 U/L (5-34); Albumin 4.2 g/dL (3.5-5.0); Alkaline Phosphatase 81 U/L (40-110); Anion Gap 14 mmol/L (10-20); BUN (Urea Nitrogen) 9 mg/dL (9.8-20.1); Bilirubin, Total 0.6 mg/dL (0.2-1.2); Calc. Creatinine Clearance 0 mL/min (70-130); Calcium 9.1 mg/dL (7.8-10.44); Carbon Dioxide 28 mmol/L (22-29); Chloride 94 mmol/L (98-107); Globulin 3.1 g/dL (2.4-3.5); Glucose 91 mg/dL (70-105); Potassium 4.3 mmol/L (3.5-5.1); Protein, Total 7.3 g/dL (6.0-8.3); Sodium 132 mmol/L (136-145)
== END 2022-05-02 14:15 | disposition home or self-care (01) ==
LOC: ERS 10:34
DX: J44.1 Chronic obstructive pulmonary disease with (acute) exacerbation (principal); I10 Essential (primary) hypertension; E78.5 Hyperlipidemia, unspecified; E78.00 Pure hypercholesterolemia, unspecified; J44.9 Chronic obstructive pulmonary disease, unspecified; Z87.891 Personal history of nicotine dependence; Z79.899 Other long term (current) drug therapy
CPT/HCPCS: 36415; 71045; 80053; 83605; 84484; 85025; 93005; 94640; 96365; J3475

== ENCOUNTER 2022-05-21 00:53 | Inpatient (IN) | payer SELFPAY ==
[2022-05-21 01:15] LABS: Analyzer IN Cardio ER; Base Excess (BEa) -0.5 mEq/L (-2.0 to +3.0); Calcium, Ionized (arterial) 1.15 mmol/L (1.12-1.30); Carboxyhemoglobin (COHb) 2.1 gm% (0.0-3.0); Hemoglobin (Hb) 13.8 g/dL (12.0-16.0); O2 Tension (PaO2), arterial 306.8 mmHg (> 80.0); pH, Arterial 7.26 (7.35-7.45)
[2022-05-21] MEDS ORDERED: Lorazepam 2 MG/ML VIAL ONE (01:27)
[2022-05-21 01:45] LABS: #Basophils 0.1 thou/uL (0.0-0.2); #Eosinphils 0.4 thou/uL (0.0-0.7); #Lymphocytes 2.8 thou/uL (1.20-3.40); #Monocytes 0.5 thou/uL (0.11-0.59); #Neutrophils 4.8 thou/uL (1.40-6.50); %Basophils 0.6 % (0.0-1.0); %Eosinophils 4.5 % (0.0-10.0); %Lymphocytes 33.4 % (21.0-51.0); %Monocytes 5.5 % (0.0-10.0); %Neutrophils 55.9 % (42.0-75.0); Hemoglobin 13.8 g/dL (12.0-16.0); Mean Corpuscular HGB CONC 32.8 g/dL (32.0-36.0); Mean Corpuscular Hemoglobin 33.8 pg (27.0-31.0); Mean Platelet Volume 6.9 fL (7.4-10.4); Platelet Count 272 thou/uL (130-400); RBC Distribution Width 12.8 % (11.5-14.5); White Blood Cell (WBC) Count 8.5 thou/uL (4.8-10.8)
[2022-05-21 02:07] LABS: ALT (SGPT) 16 U/L (8-55); AST (SGOT) 20 U/L (5-34); Albumin 4.1 g/dL (3.4-4.8); Alkaline Phosphatase 75 U/L (40-110); Anion Gap 13 mmol/L (10-20); BUN (Urea Nitrogen) 10 mg/dL (9.8-20.1); Bilirubin, Total 0.3 mg/dL (0.2-1.2); Calc. Creatinine Clearance 0 mL/min (70-130); Calcium 8.9 mg/dL (7.8-10.44); Carbon Dioxide 30 mmol/L (23-31); Chloride 94 mmol/L (98-107); Glucose 96 mg/dL (80-115); Potassium 4.2 mmol/L (3.5-5.1); Protein, Total 7.1 g/dL (5.8-8.1); Sodium 133 mmol/L (136-145)
[2022-05-21 03:45] LABS: CO2 Tension 63.3 mmHg (35.0-45.0)
[2022-05-21 03:46] LABS: ALV-art Gradient -29.425 mmHg (0-20); Puncture Site LRA
[2022-05-21 04:06] LABS: SARS-CoV-2 NAA Rapid Test Not Detected (NotDetected)
[2022-05-21 05:08] LABS: Troponin I Less than 0.010 ng/mL (< 0.028)
[2022-05-21] MEDS ORDERED: hydrALAZINE 20 MG/ML VIAL SLOW IVP PRN (08:20)
[2022-05-21] MEDS ORDERED: Ibuprofen 200 MG TAB PO PRN (08:20)
[2022-05-21] MEDS ORDERED: Guaifenesin DM 100-10/5 ML UDCUP PO PRN (08:20)
[2022-05-21] MEDS ORDERED: Acetaminophen 500 MG TAB PO PRN (08:20)
[2022-05-21] MEDS ORDERED: Benzonatate 100 MG CAP PO PRN (08:20)
[2022-05-21] MEDS ORDERED: Ondansetron PF 4 MG/2 ML Vial IVP PRN (08:20)
[2022-05-21] MEDS ORDERED: Ondansetron ODT 4 MG TAB PO PRN (08:20)
[2022-05-21] MEDS ORDERED: Carvedilol 6.25 MG TAB PO SCH (09:00)
[2022-05-21] MEDS: guaiFENesin ER 600 MG TAB PO SCH ×2 (10:44→21:13)
[2022-05-21] MEDS: methylPREDNISolone Sod Succ 40 MG VIAL IVP SCH ×3 (10:45→23:47)
[2022-05-21] MEDS: Aspirin 81 mg Enteric Coated Tablet PO SCH (10:45)
[2022-05-21] MEDS: Famotidine 20 MG TAB PO SCH ×2 (10:45→21:12)
[2022-05-21] MEDS: Carvedilol 25 MG TAB PO SCH ×2 (10:45→21:13)
[2022-05-21] MEDS: Fluticasone Propionate Nasal Spray 16 gm Bottle NASAL SCH (10:46)
[2022-05-21] MEDS: Budesonide 0.5 MG/2 ML NEB NEB SCH (19:26)
[2022-05-21] MEDS: Mometasone/Formoterol 200/5 60 PUFF INH SCH (19:27)
[2022-05-21] MEDS: Gabapentin 100 MG CAP PO SCH (21:12)
[2022-05-21] MEDS: Cyclobenzaprine 10 MG TAB PO SCH (21:13)
[2022-05-21] MEDS: Atorvastatin Calcium 10 MG TAB PO SCH (21:13)
[2022-05-22 04:04] LABS: #Lymphocytes 1.1 thou/uL (1.20-3.40); #Monocytes 0.1 thou/uL (0.11-0.59); #Neutrophils 7.7 thou/uL (1.40-6.50); %Eosinophils 0.2 % (0.0-10.0); %Lymphocytes 12.4 % (21.0-51.0); %Monocytes 1.1 % (0.0-10.0); %Neutrophils 86.4 % (42.0-75.0); Hemoglobin 13.2 g/dL (12.0-16.0); Mean Corpuscular HGB CONC 33.1 g/dL (32.0-36.0); Mean Platelet Volume 7.9 fL (7.4-10.4); Platelet Count 242 thou/uL (130-400); RBC Distribution Width 12.7 % (11.5-14.5); White Blood Cell (WBC) Count 8.9 thou/uL (4.8-10.8)
[2022-05-22 04:22] LABS: Anion Gap 13 mmol/L (10-20); BUN (Urea Nitrogen) 12 mg/dL (9.8-20.1); Calc. Creatinine Clearance 58 mL/min (70-130); Calcium 9.3 mg/dL (7.8-10.44); Carbon Dioxide 32 mmol/L (23-31); Chloride 92 mmol/L (98-107); Estimated GFR 84; Glucose 168 mg/dL (80-115); Potassium 4.1 mmol/L (3.5-5.1); Sodium 133 mmol/L (136-145)
[2022-05-22] MEDS: methylPREDNISolone Sod Succ 40 MG VIAL IVP SCH ×3 (06:46→21:00)
[2022-05-22] MEDS: Mometasone/Formoterol 200/5 60 PUFF INH SCH ×2 (07:00→19:36)
[2022-05-22] MEDS: Budesonide 0.5 MG/2 ML NEB NEB SCH ×2 (07:00→19:36)
[2022-05-22] MEDS: Aspirin 81 mg Enteric Coated Tablet PO SCH (07:56)
[2022-05-22] MEDS: Carvedilol 25 MG TAB PO SCH ×2 (07:56→20:56)
[2022-05-22] MEDS: guaiFENesin ER 600 MG TAB PO SCH ×2 (07:56→20:55)
[2022-05-22] MEDS: Famotidine 20 MG TAB PO SCH ×2 (07:56→20:56)
[2022-05-22] MEDS: Fluticasone Propionate Nasal Spray 16 gm Bottle NASAL SCH (07:57)
[2022-05-22 14:16] VITALS: BMI 18.7
[2022-05-22] MEDS: Gabapentin 100 MG CAP PO SCH (20:55)
[2022-05-22] MEDS: Cyclobenzaprine 10 MG TAB PO SCH (20:56)
[2022-05-22] MEDS: Atorvastatin Calcium 10 MG TAB PO SCH (20:56)
[2022-05-23] MEDS ORDERED: Melatonin 3 MG TAB PO PRN (00:38)
[2022-05-23] MEDS: methylPREDNISolone Sod Succ 40 MG VIAL IVP SCH ×2 (06:18→13:46)
[2022-05-23] MEDS: Mometasone/Formoterol 200/5 60 PUFF INH SCH (07:20)
[2022-05-23] MEDS: Budesonide 0.5 MG/2 ML NEB NEB SCH (07:20)
[2022-05-23] MEDS: Aspirin 81 mg Enteric Coated Tablet PO SCH (08:33)
[2022-05-23] MEDS: Famotidine 20 MG TAB PO SCH (08:33)
[2022-05-23] MEDS: guaiFENesin ER 600 MG TAB PO SCH (08:34)
[2022-05-23] MEDS: Carvedilol 25 MG TAB PO SCH (08:34)
[2022-05-23] MEDS: Fluticasone Propionate Nasal Spray 16 gm Bottle NASAL SCH (10:31)
[2022-05-23 16:50] VITALS: BP 154/89; TEMP 98.1
== END 2022-05-23 17:24 | disposition home or self-care (01) | DRG 189 ==
LOC: ERS 00:53 → IMCU/EMU 03:00 → T4-B 05-22 12:30
PROVIDERS: ADMIT Internal Medicine; ATTEND Internal Medicine
PROC: 5A09357 Assistance with Respiratory Ventilation, Less than 24 Consecutive Hours, Continuous Positive Airway Pressure (ICD-10-PCS; principal; 2022-05-21)
DX: J96.01 Acute respiratory failure with hypoxia (principal); J44.1 Chronic obstructive pulmonary disease with (acute) exacerbation; E87.1 Hypo-osmolality and hyponatremia; Z20.822 Contact with and (suspected) exposure to COVID-19; I10 Essential (primary) hypertension; J96.02 Acute respiratory failure with hypercapnia; E78.5 Hyperlipidemia, unspecified; F41.9 Anxiety disorder, unspecified; F32.A Depression, unspecified; Z90.710 Acquired absence of both cervix and uterus; Z87.891 Personal history of nicotine dependence; Z79.899 Other long term (current) drug therapy; Z88.8 Allergy status to other drugs, medicaments and biological substances; Z82.5 Family history of asthma and other chronic lower respiratory diseases; Z56.0 Unemployment, unspecified; Z79.82 Long term (current) use of aspirin
CPT/HCPCS: 36415; 36416; 36600; 71045; 80048; 80053; 82805; 83880; 84484; 85025; 93005; 94640; 94660; 96374; J2060; J2920; J7620; J7626; U0002

== ENCOUNTER 2022-12-02 15:53 | Emergency (ER) | payer OTHER, SELFPAY ==
[2022-12-02 17:22] LABS: #Basophils 0.1 thou/uL (0.0-0.2); #Eosinphils 0.3 thou/uL (0.0-0.7); #Lymphocytes 2.2 thou/uL (1.20-3.40); #Monocytes 0.5 thou/uL (0.11-0.59); #Neutrophils 4.1 thou/uL (1.40-6.50); %Eosinophils 3.9 % (0.0-10.0); %Lymphocytes 30.9 % (21.0-51.0); %Monocytes 7.3 % (0.0-10.0); %Neutrophils 56.9 % (42.0-75.0); Hemoglobin 14.6 g/dL (12.0-16.0); Mean Corpuscular HGB CONC 33.5 g/dL (32.0-36.0); Mean Corpuscular Hemoglobin 33.5 pg (27.0-31.0); Mean Corpuscular Volume 99.8 fl (78.0-98.0); Mean Platelet Volume 7.2 fL (7.4-10.4); Platelet Count 246 10x3/uL (130-400); RBC Distribution Width 11.7 % (11.5-14.5); Red Blood Cell (RBC) Count 4.37 mill/uL (4.20-5.40); White Blood Cell (WBC) Count 7.3 10x3/uL (4.8-10.8)
[2022-12-02 17:46] LABS: ALT (SGPT) 23 U/L (8-55); AST (SGOT) 26 U/L (5-34); Albumin 4.5 g/dL (3.4-4.8); Alkaline Phosphatase 91 U/L (40-110); Anion Gap 12 mmol/L (10-20); BUN (Urea Nitrogen) 13 mg/dL (9.8-20.1); Bilirubin, Total 0.4 mg/dL (0.2-1.2); Calc. Creatinine Clearance 0 mL/min (70-130); Calcium 9.6 mg/dL (7.8-10.44); Carbon Dioxide 28 mmol/L (23-31); Chloride 89 mmol/L (98-107); Estimated GFR 74; Globulin 2.8 g/dL (2.4-3.5); Glucose 78 mg/dL (80-115); Potassium 4.5 mmol/L (3.5-5.1); Protein, Total 7.3 g/dL (5.8-8.1); Sodium 124 mmol/L (136-145)
[2022-12-02] MEDS ORDERED: Aspirin Chewable 81 MG TAB ONE (18:44)
[2022-12-02] MEDS ORDERED: methylPREDNISolone Sod Succ/PF 125 MG/2 ML VIAL ONE (18:44)
[2022-12-02] MEDS ORDERED: Ipratropium/Albuterol 3 ML NEB ONE (19:05)
[2022-12-02 20:41] LABS: Anion Gap 13 mmol/L (10-20); BUN (Urea Nitrogen) 13 mg/dL (9.8-20.1); Calc. Creatinine Clearance 0 mL/min (70-130); Calcium 9.4 mg/dL (7.8-10.44); Carbon Dioxide 27 mmol/L (23-31); Chloride 95 mmol/L (98-107); Estimated GFR 88; Glucose 71 mg/dL (80-115); Sodium 131 mmol/L (136-145)
== END 2022-12-02 22:45 | disposition home or self-care (01) ==
LOC: ERS 15:53
DX: J44.1 Chronic obstructive pulmonary disease with (acute) exacerbation (principal); E87.1 Hypo-osmolality and hyponatremia; E78.5 Hyperlipidemia, unspecified; I10 Essential (primary) hypertension; J44.9 Chronic obstructive pulmonary disease, unspecified; Z79.899 Other long term (current) drug therapy
CPT/HCPCS: 36415; 71045; 80053; 83880; 84484; 85025; 93005; 96374; J2930; J7620

== ENCOUNTER 2024-01-01 06:05 | Inpatient (IN) | payer OTHER ==
[2024-01-01] MEDS ORDERED: methylPREDNISolone Sod Succ/PF 125 MG/2 ML VIAL ONE (06:19)
[2024-01-01 07:06] LABS: Troponin I 0.044 ng/mL (< 0.028)
[2024-01-01] MEDS ORDERED: Magnesium 2 GM/50 ML BAG (IN WATER) ONE (07:09)
[2024-01-01 07:31] LABS: Albumin 4.5 g/dL (3.4-4.8)
[2024-01-01 07:33] LABS: Calcium 9.3 mg/dL (7.8-10.44); Chloride Less than 65 mmol/L (98-107); Potassium 3.7 mmol/L (3.5-5.1)
[2024-01-01 07:34] LABS: Globulin 3.1 g/dL (2.4-3.5); Protein, Total 7.6 g/dL (5.8-8.1)
[2024-01-01 07:35] LABS: Carbon Dioxide 30 mmol/L (23-31)
[2024-01-01 07:36] LABS: Bilirubin, Total 1.4 mg/dL (0.2-1.2)
[2024-01-01 07:37] LABS: Alkaline Phosphatase 91 U/L (40-110); Calc. Creatinine Clearance 0 mL/min (70-130); Estimated GFR 82
[2024-01-01 07:38] LABS: BUN (Urea Nitrogen) 13 mg/dL (9.8-20.1)
[2024-01-01 07:39] LABS: AST (SGOT) 67 U/L (5-34)
[2024-01-01 07:40] LABS: ALT (SGPT) 29 U/L (8-55)
[2024-01-01 07:45] LABS: Critical Call Chemistry NUR.NKL@0744; Glucose 45 mg/dL (80-115); Sodium 104 mmol/L (136-145)
[2024-01-01 08:00] LABS: #Monocytes 0.2 thou/uL (0.11-0.59); #Neutrophils 3.9 thou/uL (1.40-6.50); %Basophils 0.4 % (0.0-1.0); %Eosinophils 0.2 % (0.0-10.0); %Monocytes 4.4 % (0.0-10.0); %Neutrophils 78.4 % (42.0-75.0); Mean Corpuscular Volume 81.4 fl (78.0-98.0); Mean Platelet Volume 9.9 fL (7.4-10.4); Platelet Count 224 10x3/uL (130-400); Red Blood Cell (RBC) Count 4.58 mill/uL (4.20-5.40)
[2024-01-01 08:03] LABS: Hemoglobin 13.9 g/dL (12.0-16.0)
[2024-01-01 08:04] LABS: Mean Corpuscular HGB CONC 36.5 g/dL (32.0-36.0); Mean Corpuscular Hemoglobin 30.3 pg (27.0-31.0)
[2024-01-01] MEDS ORDERED: Aspirin Chewable 81 MG TAB ONE (08:18)
[2024-01-01] MEDS ORDERED: Ondansetron PF 4 MG/2 ML Vial ONE (08:24)
[2024-01-01 09:25] LABS: BUN (Urea Nitrogen) 13 mg/dL (9.8-20.1); Calc. Creatinine Clearance 0 mL/min (70-130); Calcium 9.3 mg/dL (7.8-10.44); Carbon Dioxide 26 mmol/L (23-31); Chloride Less than 65 mmol/L (98-107); Estimated GFR 81; Glucose 68 mg/dL (80-115); Potassium 3.7 mmol/L (3.5-5.1)
[2024-01-01] MEDS ORDERED: Albuterol 2.5 MG (3 mL) NEB ONE (09:39)
[2024-01-01] MEDS ORDERED: Albuterol 2.5 MG (0.5 mL) NEB ONE (09:39)
[2024-01-01] MEDS ORDERED: Ipratropium/Albuterol 3 ML NEB ONE (09:39)
[2024-01-01 09:47] LABS: Sodium 104 mmol/L (136-145)
[2024-01-01] MEDS ORDERED: Acetaminophen 650 MG Suppository PR PRN (10:37)
[2024-01-01] MEDS ORDERED: Acetaminophen 325 MG TAB PO PRN (10:37)
[2024-01-01] MEDS ORDERED: Dextrose 50% Abboject 50 ML SYRINGE SLOW IVP PRN (10:48)
[2024-01-01] MEDS ORDERED: Dextrose 5% in Water 1,000 ML IV PRN (10:48)
[2024-01-01] MEDS ORDERED: Glucagon 1 MG/ML KIT IM PRN (10:48)
[2024-01-01] MEDS: Sodium Chloride 256 MEQ in Sterile Water 936 ML IV SCH ×2 (11:15→17:44)
[2024-01-01] MEDS: Ipratropium/Albuterol 3 ML NEB NEB SCH (12:14)
[2024-01-01 12:31] LABS: Hemoglobin A1c 5.8 % (4.0-6.0)
[2024-01-01 12:43] LABS: BUN (Urea Nitrogen) 13 mg/dL (9.8-20.1); Calc. Creatinine Clearance 0 mL/min (70-130); Carbon Dioxide 28 mmol/L (23-31); Chloride Less than 65 mmol/L (98-107); Estimated GFR 83; Glucose 104 mg/dL (80-115); Potassium 3.8 mmol/L (3.5-5.1)
[2024-01-01 12:50] LABS: Critical Call Chemistry NUR.VB5 @1249; Sodium 104 mmol/L (136-145)
[2024-01-01] MEDS: Ipratropium/Albuterol 3 ML NEB NEB PRN (14:40)
[2024-01-01 17:19] LABS: BUN (Urea Nitrogen) 13 mg/dL (9.8-20.1); Calc. Creatinine Clearance 0 mL/min (70-130); Calcium 8.7 mg/dL (7.8-10.44); Carbon Dioxide 29 mmol/L (23-31); Chloride Less than 65 mmol/L (98-107); Estimated GFR 73; Glucose 143 mg/dL (80-115); Potassium 3.7 mmol/L (3.5-5.1)
[2024-01-01 18:03] LABS: Critical Call Chemistry NUR.VB5@1800; Sodium 105 mmol/L (136-145)
[2024-01-01 18:54] VITALS: BMI 18.1
[2024-01-01 21:37] LABS: Anion Gap 16 mmol/L (10-20); BUN (Urea Nitrogen) 14 mg/dL (9.8-20.1); Calc. Creatinine Clearance 50 mL/min (70-130); Calcium 8.5 mg/dL (7.8-10.44); Carbon Dioxide 28 mmol/L (23-31); Chloride 68 mmol/L (98-107); Estimated GFR 77; Glucose 146 mg/dL (80-115); Potassium 3.6 mmol/L (3.5-5.1)
[2024-01-01 21:43] LABS: Critical Call Chemistry NUR.KAN@2143; Sodium 108 mmol/L (136-145)
[2024-01-01] MEDS: Atorvastatin Calcium 20 MG TAB PO SCH (21:44)
[2024-01-02 02:41] LABS: Anion Gap 17 mmol/L (10-20); Calc. Creatinine Clearance 53 mL/min (70-130); Calcium 8.5 mg/dL (7.8-10.44); Carbon Dioxide 26 mmol/L (23-31); Chloride 72 mmol/L (98-107); Estimated GFR 83; Glucose 125 mg/dL (80-115); Potassium 3.6 mmol/L (3.5-5.1)
[2024-01-02 02:49] LABS: BUN (Urea Nitrogen) 14 mg/dL (9.8-20.1)
[2024-01-02 02:52] LABS: Sodium 111 mmol/L (136-145)
[2024-01-02 05:51] LABS: #Monocytes 0.6 thou/uL (0.11-0.59); #Neutrophils 5.1 thou/uL (1.40-6.50); %Eosinophils 0.2 % (0.0-10.0); %Lymphocytes 10.3 % (21.0-51.0); %Monocytes 9.8 % (0.0-10.0); %Neutrophils 79.5 % (42.0-75.0); Hematocrit 34.9 % (36.0-47.0); Hemoglobin 12.8 g/dL (12.0-16.0); Mean Corpuscular HGB CONC 36.7 g/dL (32.0-36.0); Mean Corpuscular Hemoglobin 30.8 pg (27.0-31.0); Mean Platelet Volume 9.7 fL (7.4-10.4); Platelet Count 216 10x3/uL (130-400); RBC Distribution Width 12.2 % (11.5-14.5); Red Blood Cell (RBC) Count 4.16 mill/uL (4.20-5.40); White Blood Cell (WBC) Count 6.4 10x3/uL (4.8-10.8)
[2024-01-02 05:57] LABS: Mean Corpuscular Volume 83.9 fl (78.0-98.0)
[2024-01-02 06:14] LABS: Anion Gap 15 mmol/L (10-20); BUN (Urea Nitrogen) 12 mg/dL (9.8-20.1); Calc. Creatinine Clearance 55 mL/min (70-130); Calcium 8.7 mg/dL (7.8-10.44); Carbon Dioxide 28 mmol/L (23-31); Chloride 75 mmol/L (98-107); Estimated GFR 87; Glucose 95 mg/dL (80-115)
[2024-01-02 06:20] LABS: Critical Call Chemistry NUR.KAN@0618; Sodium 114 mmol/L (136-145)
[2024-01-02] MEDS: Dextrose 5% in Water 1,000 ML IV SCH (06:47)
[2024-01-02 08:47] LABS: Anion Gap 16 mmol/L (10-20); BUN (Urea Nitrogen) 12 mg/dL (9.8-20.1); Calc. Creatinine Clearance 51 mL/min (70-130); Calcium 8.8 mg/dL (7.8-10.44); Carbon Dioxide 30 mmol/L (23-31); Chloride 72 mmol/L (98-107); Estimated GFR 80; Glucose 160 mg/dL (80-115); Potassium 3.4 mmol/L (3.5-5.1)
[2024-01-02 09:05] LABS: Sodium 115 mmol/L (136-145)
[2024-01-02] MEDS: Lorazepam 1 MG TAB PO SCH ×2 (11:51→20:32)
[2024-01-02] MEDS: Cyclobenzaprine 10 MG TAB PO SCH ×2 (11:51→20:19)
[2024-01-02] MEDS: Gabapentin 100 MG CAP PO SCH ×2 (11:51→20:30)
[2024-01-02] MEDS: predniSONE 20 MG TAB PO SCH (11:52)
[2024-01-02] MEDS: Potassium Chloride 20 MEQ TAB PO SCH (11:52)
[2024-01-02] MEDS: Enoxaparin 40 MG (0.4 mL) SYRINGE SC SCH (11:52)
[2024-01-02 13:14] LABS: Anion Gap 13 mmol/L (10-20); BUN (Urea Nitrogen) 13 mg/dL (9.8-20.1); Calc. Creatinine Clearance 53 mL/min (70-130); Calcium 8.7 mg/dL (7.8-10.44); Carbon Dioxide 31 mmol/L (23-31); Chloride 71 mmol/L (98-107); Estimated GFR 82; Glucose 116 mg/dL (80-115); Potassium 3.3 mmol/L (3.5-5.1)
[2024-01-02 13:26] LABS: Sodium 112 mmol/L (136-145)
[2024-01-02] MEDS: Sodium Chloride 1 GM TAB PO SCH (14:30)
[2024-01-02 17:33] LABS: Anion Gap 12 mmol/L (10-20); BUN (Urea Nitrogen) 14 mg/dL (9.8-20.1); Calc. Creatinine Clearance 51 mL/min (70-130); Calcium 8.5 mg/dL (7.8-10.44); Carbon Dioxide 33 mmol/L (23-31); Chloride 72 mmol/L (98-107); Estimated GFR 79; Glucose 129 mg/dL (80-115); Potassium 4.2 mmol/L (3.5-5.1)
[2024-01-02 17:50] LABS: Sodium 113 mmol/L (136-145)
[2024-01-02 20:14] LABS: Anion Gap 11 mmol/L (10-20); BUN (Urea Nitrogen) 18 mg/dL (9.8-20.1); Calc. Creatinine Clearance 39 mL/min (70-130); Calcium 8.5 mg/dL (7.8-10.44); Carbon Dioxide 33 mmol/L (23-31); Chloride 74 mmol/L (98-107); Estimated GFR 57; Glucose 179 mg/dL (80-115); Potassium 4.1 mmol/L (3.5-5.1)
[2024-01-02] MEDS: Midodrine HCl 5 MG TAB PO SCH (20:19)
[2024-01-02 20:22] LABS: Sodium 114 mmol/L (136-145)
[2024-01-02] MEDS: Mometasone 200 MCG/Formoterol 5 MCG 120 PUFF INHALER INH SCH (20:22)
[2024-01-03] MEDS: Sodium Chloride 0.9% 500 ML IVPB SCH (00:23)
[2024-01-03 01:01] LABS: Anion Gap 8 mmol/L (10-20); BUN (Urea Nitrogen) 19 mg/dL (9.8-20.1); Calc. Creatinine Clearance 39 mL/min (70-130); Calcium 8.7 mg/dL (7.8-10.44); Carbon Dioxide 33 mmol/L (23-31); Chloride 78 mmol/L (98-107); Estimated GFR 57; Glucose 153 mg/dL (80-115); Potassium 4.2 mmol/L (3.5-5.1)
[2024-01-03 01:04] LABS: Critical Call Chemistry NUR.BR6@0104; Sodium 115 mmol/L (136-145)
[2024-01-03] MEDS: Aspirin 81 mg Enteric Coated Tablet PO SCH (08:18)
[2024-01-03 11:09] LABS: Anion Gap 9 mmol/L (10-20); BUN (Urea Nitrogen) 17 mg/dL (9.8-20.1); Calc. Creatinine Clearance 52 mL/min (70-130); Calcium 8.7 mg/dL (7.8-10.44); Carbon Dioxide 36 mmol/L (23-31); Chloride 81 mmol/L (98-107); Estimated GFR 79; Glucose 143 mg/dL (80-115); Potassium 3.5 mmol/L (3.5-5.1); Sodium 122 mmol/L (136-145)
[2024-01-03] MEDS: Benzocaine/Menthol 1 LOZ LOZ PO PRN (13:04)
[2024-01-03] MEDS: Polyethylene Glycol 3350 17 GM Packet PO SCH (13:04)
[2024-01-03 18:27] LABS: Anion Gap 10 mmol/L (10-20); BUN (Urea Nitrogen) 19 mg/dL (9.8-20.1); Calc. Creatinine Clearance 40 mL/min (70-130); Calcium 8.6 mg/dL (7.8-10.44); Carbon Dioxide 36 mmol/L (23-31); Chloride 82 mmol/L (98-107); Estimated GFR 58; Glucose 140 mg/dL (80-115); Potassium 4.5 mmol/L (3.5-5.1); Sodium 123 mmol/L (136-145)
[2024-01-03] MEDS: Senokot S 8.6-50 MG TAB PO SCH (21:54)
[2024-01-04 05:40] LABS: Anion Gap 10 mmol/L (10-20); BUN (Urea Nitrogen) 18 mg/dL (9.8-20.1); Calc. Creatinine Clearance 54 mL/min (70-130); Calcium 9.2 mg/dL (7.8-10.44); Carbon Dioxide 35 mmol/L (23-31); Chloride 83 mmol/L (98-107); Estimated GFR 83; Glucose 89 mg/dL (80-115); Potassium 4.1 mmol/L (3.5-5.1); Sodium 124 mmol/L (136-145)
[2024-01-04] MEDS: Sodium Chloride 256 MEQ in Dextrose 5% in Water 936 ML IV SCH (09:44)
[2024-01-04] MEDS: Polyethylene Glycol 3350 17 GM Packet PO SCH (09:46)
[2024-01-04 14:52] LABS: Anion Gap 12 mmol/L (10-20); BUN (Urea Nitrogen) 17 mg/dL (9.8-20.1); Calc. Creatinine Clearance 47 mL/min (70-130); Calcium 8.7 mg/dL (7.8-10.44); Carbon Dioxide 31 mmol/L (23-31); Chloride 85 mmol/L (98-107); Estimated GFR 69; Glucose 241 mg/dL (80-115); Potassium 4.2 mmol/L (3.5-5.1); Sodium 124 mmol/L (136-145)
[2024-01-04 18:36] LABS: Anion Gap 11 mmol/L (10-20); BUN (Urea Nitrogen) 18 mg/dL (9.8-20.1); Calc. Creatinine Clearance 51 mL/min (70-130); Calcium 8.8 mg/dL (7.8-10.44); Carbon Dioxide 33 mmol/L (23-31); Chloride 87 mmol/L (98-107); Estimated GFR 77; Glucose 150 mg/dL (80-115); Potassium 4.6 mmol/L (3.5-5.1); Sodium 126 mmol/L (136-145)
[2024-01-04] MEDS: FLU VACC QS2023-24(6MOS UP)/PF 60 MCG/0.5 ML SYRINGE IM ONE (22:14)
[2024-01-04 23:08] LABS: Anion Gap 11 mmol/L (10-20); BUN (Urea Nitrogen) 21 mg/dL (9.8-20.1); Calc. Creatinine Clearance 54 mL/min (70-130); Calcium 8.8 mg/dL (7.8-10.44); Carbon Dioxide 31 mmol/L (23-31); Chloride 90 mmol/L (98-107); Estimated GFR 82; Glucose 171 mg/dL (80-115); Potassium 4.2 mmol/L (3.5-5.1); Sodium 128 mmol/L (136-145)
[2024-01-05] MEDS: guaiFENesin ER 600 MG TAB PO SCH (09:11)
[2024-01-05] MEDS: LevoFLOXacin 750 MG TAB PO SCH (09:12)
[2024-01-05 09:25] LABS: Chloride 91 mmol/L (98-107); Potassium 4.2 mmol/L (3.5-5.1); Sodium 128 mmol/L (136-145)
[2024-01-05 09:26] LABS: Calcium 8.9 mg/dL (7.8-10.44); Glucose 105 mg/dL (80-115)
[2024-01-05 09:28] LABS: Anion Gap 11 mmol/L (10-20); Carbon Dioxide 30 mmol/L (23-31)
[2024-01-05 09:30] LABS: BUN (Urea Nitrogen) 17 mg/dL (9.8-20.1); Calc. Creatinine Clearance 60 mL/min (70-130); Estimated GFR 93
[2024-01-05] MEDS: dilTIAZem CD 120 MG CAP PO SCH (16:21)
[2024-01-05 18:06] LABS: Anion Gap 10 mmol/L (10-20); BUN (Urea Nitrogen) 15 mg/dL (9.8-20.1); Calc. Creatinine Clearance 52 mL/min (70-130); Calcium 8.7 mg/dL (7.8-10.44); Carbon Dioxide 34 mmol/L (23-31); Chloride 92 mmol/L (98-107); Estimated GFR 77; Glucose 148 mg/dL (80-115); Potassium 4.6 mmol/L (3.5-5.1); Sodium 131 mmol/L (136-145)
[2024-01-06] MEDS: LevoFLOXacin 750 MG TAB PO SCH (05:29)
[2024-01-06 07:02] LABS: Anion Gap 10 mmol/L (10-20); BUN (Urea Nitrogen) 12 mg/dL (9.8-20.1); Calc. Creatinine Clearance 65 mL/min (70-130); Calcium 8.7 mg/dL (7.8-10.44); Carbon Dioxide 37 mmol/L (23-31); Chloride 91 mmol/L (98-107); Estimated GFR 98; Glucose 105 mg/dL (80-115); Potassium 4.3 mmol/L (3.5-5.1); Sodium 134 mmol/L (136-145)
[2024-01-06 08:11] VITALS: TEMP 98.4
[2024-01-06] MEDS ORDERED: dilTIAZem CD 120 MG CAP PO SCH (09:00)
[2024-01-06] MEDS: dilTIAZem CD 180 MG CAP PO SCH (09:12)
[2024-01-06 11:17] VITALS: BP 115/66
== END 2024-01-06 13:05 | disposition home or self-care (01) | DRG 640 ==
LOC: ERS 06:05 → SUATTDRO 06:05 → ERHOLD 10:17 → 2NO 18:30
PROVIDERS: ADMIT Family Medicine; ATTEND Family Medicine
DX: E87.1 Hypo-osmolality and hyponatremia (principal); J96.01 Acute respiratory failure with hypoxia; J44.1 Chronic obstructive pulmonary disease with (acute) exacerbation; E44.0 Moderate protein-calorie malnutrition; Z68.1 Body mass index [BMI] 19.9 or less, adult; J40 Bronchitis, not specified as acute or chronic; E78.5 Hyperlipidemia, unspecified; I10 Essential (primary) hypertension; F41.9 Anxiety disorder, unspecified; F32.A Depression, unspecified; E16.2 Hypoglycemia, unspecified; E87.6 Hypokalemia; G62.9 Polyneuropathy, unspecified; Z88.8 Allergy status to other drugs, medicaments and biological substances; Z90.710 Acquired absence of both cervix and uterus; Z83.3 Family history of diabetes mellitus; Z79.899 Other long term (current) drug therapy; Z79.82 Long term (current) use of aspirin; Z79.51 Long term (current) use of inhaled steroids
CPT/HCPCS: 36415; 36416; 71045; 80048; 80053; 82533; 83036; 83930; 84300; 84443; 84484; 84550; 85025; 93005; 94640; 96365; 96375; A4217; J1650; J2405; J2930; J3475; J7030; J7070; J7512; J7611; J7620

== ENCOUNTER 2024-11-09 12:00 | Inpatient (IN) | payer OTHER, SELFPAY ==
[2024-11-09] MEDS ORDERED: LORazepam 2 MG/ML SYR.(CARPUJECT) ONE (12:02)
[2024-11-09] MEDS ORDERED: Albuterol 2.5 MG (0.5 mL) NEB ONE (12:08)
[2024-11-09] MEDS ORDERED: Albuterol 2.5 MG (3 mL) NEB ONE (12:08)
[2024-11-09] MEDS ORDERED: Magnesium 2 GM/50 ML BAG (IN WATER) ONE (12:20)
[2024-11-09] MEDS ORDERED: cefTRIAXone (ROCEPHIN) 2 GM VIAL ONE (12:20)
[2024-11-09] MEDS ORDERED: Azithromycin 500 MG VIAL ONE (12:21)
[2024-11-09] MEDS ORDERED: Sodium Chloride 0.9% 100 ML ONE (12:21)
[2024-11-09 12:26] LABS: Analyzer IN Cardio ER; Base Excess 1.6 mEq/L (-2.0 to +3.0); Calcium, Ionized (venous) 1.11 mmol/L (1.16-1.32); Chloride (VBG) 86 mmol/L (98-106); Hematocrit-VBG 38 % (36.0-47.0); Hemoglobin (Hb) 12.9 g/dL (11.7-16.0); Potassium (VBG) 4.47 mmol/L (3.70-5.30); Sodium 126 mmol/L (133-146); pH (venous) 7.351 (7.32-7.43)
[2024-11-09 12:36] LABS: %Basophils 0.5 % (0.0-1.0); %Eosinophils 0.4 % (0.0-10.0); %Lymphocytes 7.6 % (21.0-51.0); %Neutrophils 85.2 % (42.0-75.0); Hematocrit 34.4 % (36.0-47.0); Hemoglobin 11.9 g/dL (12.0-16.0); Mean Corpuscular HGB CONC 34.6 g/dL (32.0-36.0); Mean Corpuscular Hemoglobin 30.9 pg (27.0-31.0); Mean Corpuscular Volume 89.4 fL (78.0-98.0); Mean Platelet Volume 9.4 fL (7.4-10.4); Platelet Count 235 10x3/uL (130-400); Red Blood Cell (RBC) Count 3.85 mill/uL (4.20-5.40)
[2024-11-09 12:51] LABS: PTT 28.4 sec (22.9-36.1); Prothrombin Time 12.7 sec (12.0-14.7)
[2024-11-09 12:52] LABS: ALT (SGPT) 18 U/L (8-55); AST (SGOT) 22 U/L (5-34); Albumin 3.9 g/dL (3.4-4.8); Alkaline Phosphatase 90 U/L (40-110); Anion Gap 16 mmol/L (10-20); BUN (Urea Nitrogen) 16 mg/dL (9.8-20.1); Bilirubin, Total 0.3 mg/dL (0.2-1.2); Calc. Creatinine Clearance 0 mL/min (70-130); Calcium 9.3 mg/dL (7.8-10.44); Carbon Dioxide 27 mmol/L (23-31); Chloride 85 mmol/L (98-107); Estimated GFR 64; Globulin 3.8 g/dL (2.4-3.5); Glucose 97 mg/dL (80-115); Magnesium 1.5 mg/dL (1.6-2.6); Potassium 4.4 mmol/L (3.5-5.1); Protein, Total 7.7 g/dL (5.8-8.1); Sodium 124 mmol/L (136-145)
[2024-11-09 12:55] LABS: Troponin I Less than 0.010 ng/mL (< 0.028)
[2024-11-09] MEDS ORDERED: Iopamidol-370 76% 500 ML MDV (1 ML CHARGE) ONE (13:52)
[2024-11-09] MEDS ORDERED: Ondansetron ODT 4 MG TAB PO PRN (16:27)
[2024-11-09] MEDS ORDERED: Ondansetron PF 4 MG/2 ML Vial IVP PRN (16:27)
[2024-11-09] MEDS ORDERED: Acetaminophen 650 MG Suppository PR PRN (16:27)
[2024-11-09 17:47] VITALS: BMI 18.3
[2024-11-09] MEDS: Ipratropium/Albuterol 3 ML NEB NEB SCH (19:21)
[2024-11-09] MEDS: methylPREDNISolone Sod Succ 40 MG VIAL IVP SCH (19:56)
[2024-11-09] MEDS ORDERED: Gabapentin 100 MG CAP PO SCH (21:00)
[2024-11-09] MEDS: Simvastatin 10 MG TAB PO SCH (21:06)
[2024-11-09] MEDS: Famotidine 20 MG TAB PO SCH (21:06)
[2024-11-09] MEDS: Lorazepam 1 MG TAB PO SCH (21:17)
[2024-11-09] MEDS: Sodium Chloride 1 GM TAB PO SCH (21:17)
[2024-11-09] MEDS: Gabapentin 300 MG CAP PO SCH (21:18)
[2024-11-09] MEDS: Sodium Chloride 0.9% 500 ML IV SCH (21:48)
[2024-11-09 22:46] LABS: Anion Gap 12 mmol/L (10-20); BUN (Urea Nitrogen) 18 mg/dL (9.8-20.1); Calc. Creatinine Clearance 44 mL/min (70-130); Calcium 8.1 mg/dL (7.8-10.44); Carbon Dioxide 23 mmol/L (23-31); Chloride 94 mmol/L (98-107); Estimated GFR 63; Glucose 229 mg/dL (80-115); Potassium 4.1 mmol/L (3.5-5.1); Sodium 125 mmol/L (136-145)
[2024-11-09 22:49] LABS: Actual Bicarbonate (HCO3a) 27.2 mEq/L (22-28); Base Excess (BEa) 0.7 mEq/L (-2.0 to +3.0); CO2 Tension 52.5 mmHg (35.0-45.0); Calcium, Ionized (arterial) 1.12 mmol/L (1.12-1.30); Carboxyhemoglobin (COHb) 0.3 gm% (0.0-3.0); Hematocrit-ABG 32 % (36.0-47.0); O2 Tension (PaO2), arterial 68.1 mmHg (> 80.0); Potassium - ABG Lab 4.29 mmol/L (3.70-5.30); pH, Arterial 7.332 (7.35-7.45)
[2024-11-09 22:51] LABS: ALV-art Gradient 122.955 mmHg (0-20)
[2024-11-10] MEDS: Albuterol 2.5 MG (3 mL) NEB NEB PRN (05:11)
[2024-11-10 05:35] LABS: #Basophils Less than 0.03 10x3/uL (0.0-0.2); #Eosinophils Less than 0.03 10x3/uL (0.0-0.7); %Basophils 0.1 % (0.0-1.0); %Lymphocytes 3.7 % (21.0-51.0); %Monocytes 0.7 % (0.0-10.0); %Neutrophils 94.7 % (42.0-75.0); Hematocrit 32.5 % (36.0-47.0); Mean Corpuscular HGB CONC 33.8 g/dL (32.0-36.0); Mean Corpuscular Hemoglobin 31.3 pg (27.0-31.0); Mean Corpuscular Volume 92.6 fL (78.0-98.0); Mean Platelet Volume 10.5 fL (7.4-10.4); Platelet Count 233 10x3/uL (130-400); RBC Distribution Width 12.1 % (11.5-14.5); Red Blood Cell (RBC) Count 3.51 mill/uL (4.20-5.40)
[2024-11-10 06:51] LABS: ALT (SGPT) 16 U/L (8-55); AST (SGOT) 20 U/L (5-34); Albumin 3.2 g/dL (3.4-4.8); Anion Gap 16 mmol/L (10-20); BUN (Urea Nitrogen) 17 mg/dL (9.8-20.1); Bilirubin, Total 0.1 mg/dL (0.2-1.2); Calc. Creatinine Clearance 53 mL/min (70-130); Calcium 8.6 mg/dL (7.8-10.44); Carbon Dioxide 23 mmol/L (23-31); Chloride 96 mmol/L (98-107); Estimated GFR 78; Globulin 3.4 g/dL (2.4-3.5); Glucose 145 mg/dL (80-115); Potassium 4.5 mmol/L (3.5-5.1); Protein, Total 6.6 g/dL (5.8-8.1); Sodium 130 mmol/L (136-145)
[2024-11-10 07:29] LABS: Alkaline Phosphatase 86 U/L (40-110)
[2024-11-10 08:18] LABS: Legionella Urinary Ag Negative (Negative); Strep pneumo Urine Ag NEGATIVE (NEGATIVE)
[2024-11-10] MEDS: Aspirin 81 mg Enteric Coated Tablet PO SCH (09:32)
[2024-11-10] MEDS: Enoxaparin 30 MG (0.3 mL) SYRINGE SC SCH (09:32)
[2024-11-10] MEDS: Acetaminophen 325 MG TAB PO PRN (09:35)
[2024-11-10] MEDS: guaiFENesin ER 600 MG TAB PO PRN (09:39)
[2024-11-10] MEDS: cefTRIAXone\\ROCEPHIN 1 GM in Sodium Chloride 0.9% 100 ML IVPB SCH (12:09)
[2024-11-10] MEDS: Azithromycin 500 MG in Sodium Chloride 0.9% 250 ML 250 ML IVPB SCH (13:05)
[2024-11-10] MEDS: Cyclobenzaprine 10 MG TAB PO PRN (15:59)
[2024-11-10] MEDS: Azithromycin 250 MG TAB PO SCH (17:46)
[2024-11-10] MEDS: Lactated Ringer's 1,000 ML IV SCH (17:50)
[2024-11-11 05:04] LABS: #Basophils Less than 0.03 10x3/uL (0.0-0.2); #Eosinophils Less than 0.03 10x3/uL (0.0-0.7); %Basophils 0.1 % (0.0-1.0); %Monocytes 6.2 % (0.0-10.0); %Neutrophils 87.1 % (42.0-75.0); Hematocrit 30.8 % (36.0-47.0); Hemoglobin 10.4 g/dL (12.0-16.0); Mean Corpuscular HGB CONC 33.8 g/dL (32.0-36.0); Mean Corpuscular Volume 91.9 fL (78.0-98.0); Mean Platelet Volume 9.9 fL (7.4-10.4); Platelet Count 262 10x3/uL (130-400); RBC Distribution Width 12.3 % (11.5-14.5); Red Blood Cell (RBC) Count 3.35 mill/uL (4.20-5.40)
[2024-11-11 05:24] LABS: Anion Gap 9 mmol/L (10-20); BUN (Urea Nitrogen) 13 mg/dL (9.8-20.1); Calc. Creatinine Clearance 67 mL/min (70-130); Calcium 8.9 mg/dL (7.8-10.44); Carbon Dioxide 31 mmol/L (23-31); Chloride 98 mmol/L (98-107); Estimated GFR 99; Glucose 105 mg/dL (80-115); Potassium 4.2 mmol/L (3.5-5.1); Sodium 134 mmol/L (136-145)
[2024-11-11] MEDS ORDERED: FLU (Fluarix Triv) TS24-25(6MOS UP)/PF 45 MCG/0.5 ML Syringe IM ONE (09:00)
[2024-11-11] MEDS: Enoxaparin 40 MG (0.4 mL) SYRINGE SC SCH (09:33)
[2024-11-11] MEDS: predniSONE 20 MG TAB PO SCH (09:33)
[2024-11-11] MEDS: Lorazepam 1 MG TAB PO SCH ×2 (12:32→19:56)
[2024-11-11] MEDS: Azithromycin 250 MG TAB PO SCH (12:32)
[2024-11-11] MEDS: dilTIAZem CD 120 MG CAP PO SCH (14:38)
[2024-11-11] MEDS: methylPREDNISolone Sod Succ 40 MG VIAL IVP SCH (17:47)
[2024-11-12 04:14] LABS: #Basophils Less than 0.03 10x3/uL (0.0-0.2); #Eosinophils Less than 0.03 10x3/uL (0.0-0.7); %Basophils 0.1 % (0.0-1.0); %Lymphocytes 4.1 % (21.0-51.0); %Monocytes 1.7 % (0.0-10.0); %Neutrophils 93.7 % (42.0-75.0); Hematocrit 30.7 % (36.0-47.0); Hemoglobin 10.2 g/dL (12.0-16.0); Mean Corpuscular HGB CONC 33.2 g/dL (32.0-36.0); Mean Corpuscular Hemoglobin 30.8 pg (27.0-31.0); Mean Corpuscular Volume 92.7 fL (78.0-98.0); Mean Platelet Volume 9.8 fL (7.4-10.4); Platelet Count 288 10x3/uL (130-400); RBC Distribution Width 12.5 % (11.5-14.5); Red Blood Cell (RBC) Count 3.31 mill/uL (4.20-5.40)
[2024-11-12 04:29] LABS: Anion Gap 13 mmol/L (10-20); BUN (Urea Nitrogen) 15 mg/dL (9.8-20.1); Calc. Creatinine Clearance 59 mL/min (70-130); Calcium 8.6 mg/dL (7.8-10.44); Carbon Dioxide 28 mmol/L (23-31); Chloride 97 mmol/L (98-107); Estimated GFR 89; Glucose 144 mg/dL (80-115); Potassium 4.4 mmol/L (3.5-5.1); Sodium 134 mmol/L (136-145)
[2024-11-12] MEDS: dilTIAZem CD 120 MG CAP PO SCH (09:02)
[2024-11-12] MEDS: Senokot S 8.6-50 MG TAB PO PRN (09:02)
[2024-11-13 04:47] LABS: #Basophils Less than 0.03 10x3/uL (0.0-0.2); #Eosinophils Less than 0.03 10x3/uL (0.0-0.7); %Basophils 0.1 % (0.0-1.0); %Lymphocytes 7.9 % (21.0-51.0); %Monocytes 2.7 % (0.0-10.0); %Neutrophils 88.7 % (42.0-75.0); Hematocrit 33.2 % (36.0-47.0); Mean Corpuscular HGB CONC 33.1 g/dL (32.0-36.0); Mean Corpuscular Hemoglobin 30.7 pg (27.0-31.0); Mean Corpuscular Volume 92.7 fL (78.0-98.0); Mean Platelet Volume 9.8 fL (7.4-10.4); Platelet Count 326 10x3/uL (130-400); RBC Distribution Width 12.3 % (11.5-14.5); Red Blood Cell (RBC) Count 3.58 mill/uL (4.20-5.40)
[2024-11-13 05:17] LABS: Anion Gap 12 mmol/L (10-20); BUN (Urea Nitrogen) 15 mg/dL (9.8-20.1); Calc. Creatinine Clearance 62 mL/min (70-130); Calcium 8.6 mg/dL (7.8-10.44); Carbon Dioxide 31 mmol/L (23-31); Chloride 93 mmol/L (98-107); Estimated GFR 94; Glucose 146 mg/dL (80-115); Potassium 3.9 mmol/L (3.5-5.1); Sodium 132 mmol/L (136-145)
[2024-11-13] MEDS ORDERED: dilTIAZem CD 120 MG CAP PO SCH (09:38)
[2024-11-13] MEDS ORDERED: dilTIAZem CD 180 MG CAP PO SCH (09:45)
[2024-11-13] MEDS: dilTIAZem ER 60 MG CAP PO SCH (11:08)
[2024-11-13] MEDS: Benzonatate 100 MG CAP PO PRN (11:47)
[2024-11-14 04:06] LABS: #Basophils Less than 0.03 10x3/uL (0.0-0.2); #Eosinophils Less than 0.03 10x3/uL (0.0-0.7); %Basophils 0.1 % (0.0-1.0); %Lymphocytes 8.4 % (21.0-51.0); %Monocytes 3.2 % (0.0-10.0); %Neutrophils 87.2 % (42.0-75.0); Hematocrit 33.6 % (36.0-47.0); Hemoglobin 11.2 g/dL (12.0-16.0); Mean Corpuscular HGB CONC 33.3 g/dL (32.0-36.0); Mean Corpuscular Volume 93.1 fL (78.0-98.0); Mean Platelet Volume 9.3 fL (7.4-10.4); Platelet Count 338 10x3/uL (130-400); RBC Distribution Width 12.3 % (11.5-14.5); Red Blood Cell (RBC) Count 3.61 mill/uL (4.20-5.40)
[2024-11-14 04:30] LABS: Anion Gap 11 mmol/L (10-20); BUN (Urea Nitrogen) 17 mg/dL (9.8-20.1); Calc. Creatinine Clearance 71 mL/min (70-130); Calcium 8.5 mg/dL (7.8-10.44); Carbon Dioxide 31 mmol/L (23-31); Chloride 95 mmol/L (98-107); Estimated GFR 100; Glucose 137 mg/dL (80-115); Potassium 3.7 mmol/L (3.5-5.1); Sodium 133 mmol/L (136-145)
[2024-11-14] MEDS: dilTIAZem CD 180 MG CAP PO SCH (08:51)
[2024-11-14] MEDS: dilTIAZem ER 60 MG CAP PO SCH (11:10)
[2024-11-14 15:57] VITALS: BP 130/66; TEMP 97.4
[2024-11-15] MEDS ORDERED: dilTIAZem CD 120 MG CAP PO SCH (09:00)
== END 2024-11-14 17:00 | disposition home or self-care (01) | DRG 189 ==
LOC: ERS 12:00 → 2NO 16:53
PROVIDERS: ADMIT Internal Medicine; ATTEND Hospitalist
DX: J96.21 Acute and chronic respiratory failure with hypoxia (principal); J44.1 Chronic obstructive pulmonary disease with (acute) exacerbation; E87.1 Hypo-osmolality and hyponatremia; I47.19 Other supraventricular tachycardia; I10 Essential (primary) hypertension; J96.11 Chronic respiratory failure with hypoxia; E78.5 Hyperlipidemia, unspecified; F41.9 Anxiety disorder, unspecified; J44.9 Chronic obstructive pulmonary disease, unspecified; Z88.5 Allergy status to narcotic agent; Z88.8 Allergy status to other drugs, medicaments and biological substances; Z91.011 Allergy to milk products; Z99.81 Dependence on supplemental oxygen; Z90.710 Acquired absence of both cervix and uterus
CPT/HCPCS: 36415; 71045; 71275; 80048; 80053; 82306; 82805; 83605; 83735; 83880; 84145; 84484; 85025; 85610; 85730; 87040; 87428; 87449; 87899; 93005; 94640; 94644; 94660; 94760; 96365; 96367; 96368; 96375; J0456; J0696; J1650; J2060; J2919; J3475; J7030; J7050; J7120; J7512; J7611; J7620; Q9967

== ENCOUNTER 2025-11-05 11:01 | Inpatient (IN) | payer OTHER ==
[2025-11-05 11:19] LABS: Actual Bicarbonate (HCO3v) 34.2 mEq/L (22-28); Analyzer IN Cardio ER; Base Excess 7.1 mEq/L (-2.0 to +3.0); Calcium, Ionized (venous) 1.05 mmol/L (1.16-1.32); Chloride (VBG) 90 mmol/L (98-106); Hematocrit-VBG 35 % (36.0-47.0); Hemoglobin (Hb) 11.8 g/dL (11.7-16.0); Potassium (VBG) 4.50 mmol/L (3.70-5.30); Sodium 128 mmol/L (133-146)
[2025-11-05 11:21] LABS: #Basophils 0.06 10x3/uL (0.0-0.2); #Eosinophils 0.21 10x3/uL (0.0-0.7); #Monocytes 0.39 10x3/uL (0.11-0.59); #Neutrophils 3.34 10x3/uL (1.40-6.50); %Basophils 1.1 % (0.0-1.0); %Eosinophils 4.0 % (0.0-10.0); %Lymphocytes 23.3 % (21.0-51.0); %Monocytes 7.5 % (0.0-10.0); %Neutrophils 63.9 % (42.0-75.0); Hematocrit 33.1 % (36.0-47.0); Hemoglobin 10.5 g/dL (12.0-16.0); Mean Corpuscular Hemoglobin 29.2 pg (27.0-31.0); Mean Corpuscular Volume 92.2 fL (78.0-98.0); Platelet Count 219 10x3/uL (130-400); Red Blood Cell (RBC) Count 3.59 mill/uL (4.20-5.40); White Blood Cell (WBC) Count 5.23 10x3/uL (4.8-10.8)
[2025-11-05] MEDS ORDERED: Albuterol 2.5 MG (3 mL) NEB ONE (11:28)
[2025-11-05] MEDS ORDERED: Magnesium 2 GM/50 ML BAG (IN WATER) ONE (11:28)
[2025-11-05 11:46] LABS: ALT (SGPT) 16 U/L (Less than 34); AST (SGOT) 27 U/L (11-34); Albumin 4.1 g/dL (3.1-4.5); Alkaline Phosphatase 54 U/L (40-110); Anion Gap 9 mmol/L (10-20); BUN (Urea Nitrogen) 16 mg/dL (9.8-20.1); Bilirubin, Total 0.4 mg/dL (0.3-1.2); Calc. Creatinine Clearance 0 mL/min (70-130); Calcium 9.2 mg/dL (7.8-10.44); Carbon Dioxide 32 mmol/L (23-31); Chloride 90 mmol/L (98-107); Globulin 2.5 g/dL (2.4-3.5); Glucose 95 mg/dL (80-115); Potassium 4.7 mmol/L (3.5-5.1); Sodium 126 mmol/L (136-145)
[2025-11-05] MEDS ORDERED: Guaifenesin DM 100-10/5 ML UDCUP PO PRN (14:04)
[2025-11-05] MEDS ORDERED: Senokot S 8.6-50 MG TAB PO PRN (14:04)
[2025-11-05] MEDS ORDERED: Ondansetron PF 4 MG/2 ML Vial IVP PRN (14:04)
[2025-11-05 15:04] VITALS: BMI 17.9
[2025-11-05] MEDS: Acetaminophen 325 MG TAB PO SCH (15:42)
[2025-11-05] MEDS: Gabapentin 300 MG CAP PO SCH (20:52)
[2025-11-05] MEDS: Famotidine 20 MG TAB PO SCH (20:53)
[2025-11-05] MEDS: Baclofen 10 MG TAB PO SCH (20:53)
[2025-11-05] MEDS: Benzonatate 100 MG CAP PO SCH (20:55)
[2025-11-06] MEDS: Albuterol 2.5 MG (3 mL) NEB NEB PRN (05:06)
[2025-11-06 07:53] LABS: #Basophils Less than 0.03 10x3/uL (0.0-0.2); #Eosinophils Less than 0.03 10x3/uL (0.0-0.7); #Monocytes 0.05 10x3/uL (0.11-0.59); #Neutrophils 4.95 10x3/uL (1.40-6.50); %Basophils 0.2 % (0.0-1.0); %Eosinophils 0.0 % (0.0-10.0); %Lymphocytes 9.8 % (21.0-51.0); %Monocytes 0.9 % (0.0-10.0); %Neutrophils 88.6 % (42.0-75.0); Hematocrit 32.1 % (36.0-47.0); Hemoglobin 10.4 g/dL (12.0-16.0); Mean Corpuscular Hemoglobin 29.5 pg (27.0-31.0); Mean Corpuscular Volume 91.2 fL (78.0-98.0); Platelet Count 240 10x3/uL (130-400); Red Blood Cell (RBC) Count 3.52 mill/uL (4.20-5.40); White Blood Cell (WBC) Count 5.59 10x3/uL (4.8-10.8)
[2025-11-06 08:05] LABS: Anion Gap 16 mmol/L (10-20); BUN (Urea Nitrogen) 16 mg/dL (9.8-20.1); Calc. Creatinine Clearance 45 mL/min (70-130); Calcium 9.2 mg/dL (7.8-10.44); Carbon Dioxide 28 mmol/L (23-31); Chloride 91 mmol/L (98-107); Glucose 183 mg/dL (80-115); Potassium 4.5 mmol/L (3.5-5.1); Sodium 130 mmol/L (136-145)
[2025-11-06] MEDS: Enoxaparin 40 MG (0.4 mL) SYRINGE SC SCH (09:00)
[2025-11-06] MEDS: Atenolol 25 MG TAB PO SCH (09:02)
[2025-11-07] MEDS: Magnesium 2 GM/50 ML(in water) 2 GM in Premix 1 BAG IVPB SCH (03:27)
[2025-11-07 06:38] LABS: #Basophils Less than 0.03 10x3/uL (0.0-0.2); #Eosinophils Less than 0.03 10x3/uL (0.0-0.7); #Monocytes 0.27 10x3/uL (0.11-0.59); #Neutrophils 11.30 10x3/uL (1.40-6.50); %Basophils 0.1 % (0.0-1.0); %Eosinophils 0.0 % (0.0-10.0); %Lymphocytes 4.7 % (21.0-51.0); %Monocytes 2.2 % (0.0-10.0); %Neutrophils 92.8 % (42.0-75.0); Hematocrit 34.9 % (36.0-47.0); Hemoglobin 11.4 g/dL (12.0-16.0); Mean Corpuscular Hemoglobin 29.8 pg (27.0-31.0); Mean Corpuscular Volume 91.4 fL (78.0-98.0); Platelet Count 254 10x3/uL (130-400); Red Blood Cell (RBC) Count 3.82 mill/uL (4.20-5.40); White Blood Cell (WBC) Count 12.18 10x3/uL (4.8-10.8)
[2025-11-07 07:03] LABS: Anion Gap 15 mmol/L (10-20); BUN (Urea Nitrogen) 17 mg/dL (9.8-20.1); Calc. Creatinine Clearance 58 mL/min (70-130); Calcium 9.6 mg/dL (7.8-10.44); Carbon Dioxide 31 mmol/L (23-31); Chloride 93 mmol/L (98-107); Glucose 137 mg/dL (80-115); Potassium 5.1 mmol/L (3.5-5.1); Sodium 134 mmol/L (136-145)
[2025-11-07 16:12] VITALS: BMI 17.9
[2025-11-09 12:38] VITALS: BP 167/82; TEMP 98.6
[2025-11-10] MEDS ORDERED: PNEUMOC 20-VAL CONJ-DIP CRM/PF 0.5 ML SYRINGE IM ONE (09:00)
== END 2025-11-09 12:32 | disposition home or self-care (01) | DRG 189 ==
LOC: ERS 11:01 → T4-A 13:58
PROVIDERS: ADMIT Hospitalist; ATTEND Hospitalist
DX: J96.21 Acute and chronic respiratory failure with hypoxia (principal); E87.1 Hypo-osmolality and hyponatremia; J44.1 Chronic obstructive pulmonary disease with (acute) exacerbation; J96.22 Acute and chronic respiratory failure with hypercapnia; Z99.81 Dependence on supplemental oxygen; F41.9 Anxiety disorder, unspecified; Z88.5 Allergy status to narcotic agent; Z88.8 Allergy status to other drugs, medicaments and biological substances; I10 Essential (primary) hypertension; E78.5 Hyperlipidemia, unspecified; Z90.710 Acquired absence of both cervix and uterus
CPT/HCPCS: 36415; 71045; 80048; 80053; 82805; 83880; 84484; 85025; 85379; 87070; 87205; 87428; 93005; 94640; 94760; 96365; 96366; J1650; J2919; J3475; J7611